=== PATIENT | female | born 1975 | race Native Hawaiian/Other Pacific Islander ===

== ENCOUNTER → 2017-07-02 | Day surgery (SDC) | payer OTHER ==
[~2017-07-02] MED LIST: Bupivacaine HCl 0.25% PF (10 ml) Inj ONE; HYDROmorphone 0.5 mg/0.5 ml ISec IVP PRN; Lactated Ringer's 1,000 ML IV ONE; Midazolam 2 MG/2 ML VIAL ONE; Neostigmine Methylsulfate 3mg/3ml Syringe IV ONE; Propofol 10 mg/ml Inj (20 ML) ONE; Rocuronium 10 mg/ml (5 ml) ONE; cefOXitin IV 1 gm in Dextrose 1 GM/50 ML BAG IVPB ONE
[2017-07-02 11:22] VITALS: TEMP 98
[2017-07-02 12:33] VITALS: BP 107/64; PULSE 80; RESP 18; O2SAT 98
--- NOTE | 2017-07-02 12:51 | PCM.SURG1 ---
Surgeon's Initial Post Op Note - Surgeon's Notes Surgeon: dr hernandez [employer] Coordinator: dr sotelo Type of Anesthesia: General LMA Pre-Operative Diagnosis: 41yr wih pelvic mass Operative Findings: ant abdominal mass Post-Operative Diagnosis: same/ant abdominal mass Operation Performed: diagnostc laroscopy/pelvic washing Specimen/Specimens Removed: pelvic washing Estimated Blood Loss: EBL {In ML}: 50 Post-Op Condition: Good Date of Surgery/Procedure: 07/02/17 Time of Surgery/Procedure: 10:00
== END | disposition home or self-care (01) ==
LOC: C.SDS 05:46
PROVIDERS: ATTEND Obstetrics & Gynecology
DX: R19.00 Intra-abdominal and pelvic swelling, mass and lump, unspecified site (principal)
CPT/HCPCS: 36415; 49320; 86850; 86900; 88104; 88305; J0694; J1100; J1170; J2001; J2250; J2405; J2704; J2710; J2765; J3010; J7120

== ENCOUNTER 2017-09-30 11:11 | Day surgery (SDC) | payer OTHER ==
[2017-09-30] MEDS ORDERED: Iohexol 240 (50 ml) ONE (13:50)
[2017-09-30] MEDS ORDERED: Lidocaine 2% Jelly (Uro-Jet) ONE (13:50)
[2017-09-30] MEDS ORDERED: cefTRIAXone IV 1 gm in Dextros 50 ML IVPB ONE (13:50)
[2017-09-30] MEDS ORDERED: Midazolam 2 MG/2 ML VIAL ONE (13:59)
[2017-09-30] MEDS ORDERED: Propofol 10 mg/ml Inj (20 ML) ONE (14:00)
[2017-09-30 14:44] VITALS: BMI 20.3
[2017-09-30] MEDS ORDERED: HYDROmorphone 0.5 mg/0.5 ml ISec IVP PRN (14:47)
[2017-09-30] MEDS ORDERED: Oxycodone/Acetaminophen 5/325 mg Tab PO PRN (14:48)
[2017-09-30 15:09] VITALS: O2SAT 100
--- NOTE | 2017-09-30 15:53 | RAD ---
PROCEDURE: HISTORY: As above COMPARISON: None TECHNIQUE: Total fluoroscopic time utilized during the procedure: 37.8 seconds ; 0.03081 mGy cm 2 FINDINGS: Submitted images from the current procedure: 12 Please refer to the physician's notes performing the procedure. IMPRESSION: Less than 1 hour fluoroscopic time utilized during performance of the procedure
--- NOTE | 2017-09-30 15:55 | RAD ---
HISTORY: BLADDER MASS COMPARISON: No prior. FINDINGS: BOWEL: Right stool retention. No bowel obstruction appreciated BONES: Five non rib-bearing lumbar vertebrae. T12 will be considered with very slight rudimentary ribs transitional elements. Bilateral sacroiliac sclerosis OTHER FINDINGS: Pelvic increased soft tissue density in this patient with clinical history of a bladder mass. Nonspecific 2 x 1 mm or smaller linear right hemipelvic calcification above the right acetabular roof etiology uncertain IMPRESSION: Pelvic soft tissue fullness -inferred distended bladder. Moderate right stool retention
[2017-09-30 16:27] VITALS: TEMP 97.4
[2017-09-30 17:10] VITALS: BP 156/71; PULSE 69; RESP 16
--- NOTE | 2017-10-05 08:59 | HP ---
UROLOGY NOTE REASON FOR ADMISSION: Workup of hematuria and possible bladder mass after insertion of stent. HISTORY OF PRESENT ILLNESS: This is a very pleasant lady. She came yesterday for the following. She has undergone possible hysterectomy and/or some kind of surgical procedure with Dr. Etienne and Dr. Valdivia and urology is consulted to deflate stent prior to that procedure and also to evaluate for any bladder mass. I reviewed the CT scan and it looks like , but previously we had seen the patient in the operating room and there was a question about the bladder mass during the laparoscopic , so now we are evaluating this. PAST MEDICAL AND SURGICAL HISTORY: As listed in the chart, otherwise unremarkable. SOCIAL HISTORY: She is . She is unremarkable social history. MEDICATIONS: See chart. ALLERGIES: SEE CHART. PHYSICAL EXAMINATION: GENERAL: A well-nourished female in no apparent distress. VITAL SIGNS: Within normal limits . ABDOMEN: Relatively soft. No rebound or guarding. No CVA tenderness. DIAGNOSES: Hematuria, possible mass and/or gynecologic mass. PLAN: As follows: The patient will undergo surgical resection maybe this week, and we are going to place stent now. We are also going to evaluate the bladder. 1. Antibiotic prophylaxis. 2. Cyst. 3. Cystogram. 4. Retrograde pyelogram. 5. Bilateral stent insertion. 6. Further plans will follow. Bert Rodriguez MD
--- NOTE | 2017-10-05 09:09 | OP ---
PROCEDURE DATE: 09/30/2017 PREOPERATIVE DIAGNOSES: Hematuria, possible bladder mass, and adnexal uterine mass. POSTOPERATIVE DIAGNOSES: Hematuria, possible bladder mass, adnexal uterine mass, and no evidence of bladder mass. PROCEDURES: Exam under anesthesia; cystoscopy, cystogram, bilateral retrograde pyelogram, and bilateral double-J stent insertion. COMPLICATIONS: There were no complications. SURGEON: Bert Rodriguez MD. BLOOD LOSS: Less than 10 mL. Examination under anesthesia, the patient had successful insertion of bilateral stents. INDICATIONS FOR THE PROCEDURE: The patient is a very pleasant lady, just 42 years old, who is going to undergo a hysterectomy or some kind of POULTRY KILLER procedure later this week with Dr. Etienne and Dr. Valdivia. In preparation to this, we are evaluating as also previously in the operating room where she was having a laparoscopic procedure and there was a question of a bladder mass. At that time, we elected to follow as an outpatient. We have seen her in the office. We had a chance to review CT scan. It does not necessarily look like, although during the procedure it looked like it was connected to the dome of the bladder. could be urachal remnants are being pulled like the way the laparoscope affected it, but subsequently had CT scan, it does not appear to have any extrinsic bladder masses. She is here today for further evaluation. We discussed . We also applied for stents in preparation for protection of the ureter. Further plans will follow. DESCRIPTION OF PROCEDURE: After obtaining informed consent, the patient was placed on the table. Routine monitor was placed. Time-out was called to confirm the patient and positioning. Rigid cystoscope via the urethra under direct vision, we identified left and right ureter. Bladder was inspected carefully. There was no bladder or intrinsic lesions. Retrograde pyelogram performed and double-J stent was inserted bilaterally. We confirmed our positioning under fluoroscopic imaging. The procedure continued. We did a cystogram at this point, and then bladder the emptied well. There were no obvious defects. Films were submitted to Radiology, but no obvious abnormalities. The patient tolerated the procedure without complications. Bert Rodriguez MD [facility] # [id number]
== END 2017-09-30 17:20 | disposition home or self-care (01) ==
LOC: C.SDS 11:11
PROVIDERS: ATTEND Urology
DX: N32.9 Bladder disorder, unspecified (principal); R31.29 Other microscopic hematuria
CPT/HCPCS: 51600; 52332; 74018; C1758; C1769; C2617; J0696; J1170; J1580

== ENCOUNTER 2017-10-02 11:53 | Day surgery (SDC) | payer OTHER ==
[2017-10-02 11:54] VITALS: BMI 23.3
--- NOTE | 2017-10-02 13:07 | C.PDOC ---
History Of Present Illness 42yo female, currently status post bilateral ureteral stent placement on 09/30/[address] Milly Rodriguez, presents to ED for evaluation of worsening pain since the stent placement. She denies any fever, chills, dysuria, hematuria. She offers no other medical complaints. Patient has a history of pelvic mass as well. Time Seen by Provider: 10/02/17 13:06 Chief Complaint (Nursing): Abdominal Pain History Per: Patient History/Exam Limitations: no limitations Onset/Duration Of Symptoms: Days Current Symptoms Are (Timing): Still Present Quality Of Discomfort: "Pain" Additional History Per: Patient Past Medical History Reviewed: Historical Data, Nursing Documentation, Vital Signs Vital Signs: Last Vital Signs Temp 98.3 F 10/02/17 13:34 Pulse 78 10/02/17 13:34 Resp 18 10/02/17 13:34 BP 105/75 10/02/17 13:34 Pulse Ox 99 10/02/17 13:58 - Medical History PMH: Denies: Chronic Kidney Disease Surgical History: Endoscopy Denies: Pacemaker Other Surgeries: bilateral ureteral stents Family History: States: No Known Family Hx - Social History Hx Alcohol Use: No Hx Substance Use: No Review Of Systems Except As Marked, All Systems Reviewed And Found Negative. Constitutional: Negative for: Fever, Chills Gastrointestinal: Positive for: Abdominal Pain Genitourinary: Negative for: Dysuria, Frequency, Hematuria Physical Exam - Physical Exam Appears: Non-toxic, Other (mild discomfort) Skin: Warm, Dry Head: Atraumatic, Normacephalic Eye(s): bilateral: Normal Inspection Oral Mucosa: Moist Neck: Normal ROM, Supple Chest: Symmetrical Cardiovascular: Rhythm Regular Respiratory: Normal Breath Sounds Gastrointestinal/Abdominal: Normal Exam, Soft, No Tenderness, No Guarding, No Rebound Back: Normal Inspection Extremity: Normal ROM, No Deformity Neurological/Psych: Oriented x3 Gait: Steady ED Course And Treatment O2 Sat by Pulse Oximetry: 99 (RA) Pulse Ox Interpretation: Normal Progress - Re-Evaluation Re-evaluation Note: 10/02/17 13:06 milly rodriguez Disposition Counseled Patient/Family Regarding: Diagnosis - Disposition Disposition: HOSPITALIZED Disposition Time: 13:07 Condition: STABLE - POA Present On Arrival: None - Clinical Impression Clinical Impression: Pain due to ureteral stent - Scribe Statement The provider has reviewed the documentation as recorded by the Scribe (Shanell Andres) Provider Attestation: All medical record entries made by the Jabieribmilly were at my direction and personally dictated by me. I have reviewed the chart and agree that the record accurately reflects my personal performance of the history, physical exam, medical decision making, and the department course for this patient. I have also personally directed, reviewed, and agree with the discharge instructions and disposition.
[2017-10-02] MEDS ORDERED: Propofol 10 mg/ml Inj (20 ML) ONE (13:37)
[2017-10-02] MEDS ORDERED: Midazolam 2 MG/2 ML VIAL ONE (13:37)
[2017-10-02] MEDS ORDERED: HYDROmorphone 0.5 mg/0.5 ml ISec IVP PRN (14:38)
[2017-10-02 15:40] VITALS: O2SAT 100
[2017-10-02 16:19] VITALS: BP 106/65; PULSE 66; RESP 18; TEMP 98
--- NOTE | 2017-10-03 02:14 | HP ---
REASON FOR ADMISSION: Removal of double-J stent. HISTORY OF PRESENT ILLNESS: Ms. Jorge Alcantar is a very pleasant lady. She is a 42 years old. On 09/30/2017, we put in bilateral stents in preparation for her to have her surgery with Dr. Etienne and Dr. Valdivia. Since then, she has had flank pain from her stents. She cannot urinate well. She is not sleeping, her is losing work. So, I discussed the options with them, at this point, they are asking me if I could remove it, and so she is here today for that. PAST MEDICAL AND SURGICAL HISTORY: No other changes. REVIEW OF SYSTEMS: No other changes. SOCIAL HISTORY: Essentially no changes. PHYSICAL EXAMINATION: GENERAL: A well-nourished female. She is just uncomfortable in appearance. VITAL SIGNS: Within normal limits. DIAGNOSES: 1. Stent discomfort. 2. Uterine mass. 3. No bladder mass as we found on Friday. PLAN: The plan will be as follows: Today, we are going to remove both stents, if stents were needed for the procedure, we will do them at the time of the procedure or close it until the time of the procedure. Further plan is to follow up, but for now, we are going to remove the stents. Risks and benefits were discussed with the patient at length. Bert Rodriguez MD
--- NOTE | 2017-10-03 07:23 | OP ---
PROCEDURE DATE: 10/02/2017 PREOPERATIVE DIAGNOSES: Stent pain, uterine mass, no bladder mass, and hematuria. POSTOPERATIVE DIAGNOSES: Stent pain, uterine mass, no bladder mass, and hematuria. PROCEDURE: Cystoscopy, and removal of a left double-J stent and a right double-J stent. BLOOD LOSS: Less than 10 mL. COMPLICATIONS: There were no complications. SURGEON: Dr. Bert Rodriguez. FINDINGS: Both stents were in good location. They were in the proper location, but they were removed easily. INDICATIONS FOR PROCEDURE: See history and physical for further details. A very pleasant lady who I placed stents in preparation for her surgery with Dr. Etienne and Dr. Valdivia, they have scheduled for surgery. Actually, I initially thought the surgery this week next week. We have placed the stents, we are hoping the patient would be okay, but she is having so much stent discomfort. She would rather go for another procedure. We have discussed the timings. She is actually now scheduled. She is scheduled for surgery upcoming. At that time, we will discuss the plans. But today, we removed the stents. DESCRIPTION OF PROCEDURE: After obtaining informed consent, the patient was placed on the table. Routine monitor was placed. Time-out was called to confirm the patient and positioning. We introduced the cystoscope via urethra. We identified the left and right ureteral stents. They were in good location. They looked to be in the bladder properly and did not look likely there is any stent migration in either direction. They were removed without difficulty. Bladder was emptied and cystoscope removed. The patient tolerated the procedure without complications. Bert Rodriguez MD
== END 2017-10-02 16:22 | disposition home or self-care (01) ==
LOC: C.ER 11:53 → C.SDS 13:07
PROVIDERS: ATTEND Urology
DX: Z46.6 Encounter for fitting and adjustment of urinary device (principal); R31.9 Hematuria, unspecified
CPT/HCPCS: 52310; J1580

== ENCOUNTER 2017-10-22 05:40 | Inpatient (IN) | payer OTHER ==
[2017-10-22] MEDS ORDERED: Bupivacaine 0.25%-Epinephrine 1:200,000 (30 ml) Inj IJ ONE (07:16)
[2017-10-22] MEDS ORDERED: ceFAZolin IV 1 gm in Dextrose 0 GM/0 ML BAG IVPB ONE (07:32)
[2017-10-22] MEDS ORDERED: Lidocaine/Epinephrine 1% 1:100000 10 ML IJ ONE ×2 (07:32→07:40)
[2017-10-22] MEDS ORDERED: ceFAZolin IV 1 gm in Dextrose 2 GM/100 ML BAG IVPB ONE (07:40)
[2017-10-22] MEDS ORDERED: Bupivacaine 0.25% Inj(30mL) IJ ONE (08:00)
[2017-10-22] MEDS ORDERED: Propofol 10 mg/ml Inj (20 ML) ONE (08:02)
[2017-10-22] MEDS ORDERED: Midazolam 2 MG/2 ML VIAL ONE ×2 (08:03→10:21)
[2017-10-22] MEDS ORDERED: Rocuronium 10 mg/ml (5 ml) ONE (08:54)
[2017-10-22] MEDS ORDERED: Neostigmine Methylsulfate 3mg/3ml Syringe IV ONE (08:54)
--- NOTE | 2017-10-22 10:08 | PCM.OP ---
Operative Report - Operative Report Date of Surgery/Procedure: 10/22/17 Time of Surgery/Procedure: 10:05 Surgeon: Jose Shore MD Team Truck Driver: Vivien VARNER Anesthesia/Sedation: Gen with Et tube Pre-Operative Diagnosis: symptomatic fibroid uterus. REctocele. Cystocele. Abnormal uterine bleeding. Chronic pain. Oelvic mass Post-Operative Diagnosis: symptomatic fibroid uterus. REctocele. Cystocele. Abnormal uterine bleeding. Chronic pain. Extensive intraabdominal intrapelvic adhesions. Uterine prolpase Indication for Surgery: worsening symptomatic fibroid uterus and prolpase uterus Operative Findings: Bulky enlarged fibroid uterus. Large glabular mass originating from the small interstine. Normal apprearing tubes and ovaries. Extensive intraabdominal intrapelvic adhesions. normal bladder and ureters anatomy as per cystoscopy at the end of the. case. Mass was released form anterior abdominal wall and bladder, hysterectomy completed and colposuspension completed. Frozesn section sent to pathology and initial read as per pathology consistent with benign fibroid disease seeded in the bowel . no mitotic figures noted. spindles noted. decision was made to proceed with resection of bowel mass by Dr Cee and possible bowel resection by Dr Cee if needed. Bowel portion of case will be dictated by Dr. Cee. Stage III rectocele enterocele and uterine prolapse Procedure/Operation Description: Total robotic hysterectomy Bilateral salpingctomy. Uterosacroligament suspenssion colpopexy. Extensive lysis of adhesions. Diagnostic cystoscopy. DESCRIPTION OF OPERATION: This is a 42 years old female with symptomatic prolapsed uterus, pelvic mass questionable bowel origin, abnormal uterine bleeding, urinary incontinence. The patient completed an extensive preoperative workup, which included an ultrasound, as well as a Pap smear, chemistry and hematology studies. The patient had a complete workup including seeing a classifications officer cc/cm as well as a general surgeon evaluating the mass. The patient has been normal recent colonoscopy. The patient underwent a couple of laparoscopies in the past and the diagnosis of extensive pelvic adhesive disease was made. I was asked to provide a gynecological surgical consultation on this patient. The patient reported these symptoms and problems as debilitating, and adversely affecting her quality of life. Following a period of failed conservative management, and patient decision was made to proceed with a more invasive approach to address the above noted problems. A decision was finally made to proceed with a total robotic assisted hysterectomy, bilateral salpingectomy, and vaginal vault suspension. A detailed description of this robotic procedure was given to the patient, all indications, risks, benefits and alternative treatments were reviewed, and printed material was also given to the patient regarding robotic surgery. The patient elected to proceed with the proposed procedure fully understanding all the risks and benefits associated with this proposed robotic procedure. Gen. surgery by Dr. Gu was also present during this case in case the mass originated from the intestine and would probably require bowel resection. After proper consent was obtained from the patient was taken to the operating room, proper patient identification was completed. She was placed in dorsal lithotomy position; general anesthesia was induced without difficulty. Her legs were placed in adjustable Amarjit stirrups. Careful attention was placed to avoid hyper-flexion or hyper-rotation of the lower extremities at the hip and the knee joints. She was prepped and draped appropriately for robotic assisted hysterectomy and colposuspension. Bowens catheter was inserted under sterile conditions. A weighted speculum was placed in the vagina, anterior lip of cervix was grasped with a tenaculum, the cervix was mildly dilated and a V- care uterine manipulator was inserted through the cervix and secured. The weighted speculum and tenaculum were removed from the patient's vagina and attention was turned to the patient's abdomen. Local anesthetic solutions of 0.25% Marcaine with epinephrine were utilized to infiltrate the skin prior to all abdominal skin incisions. A total of 15 mL of 0.25% Marcaine was utilized throughout the procedure. While tenting the abdominal wall up, a Veress needle was inserted at a 45 degree angle. With CO2 insufflation, there was a drop in intraperitoneal pressure confirming correct placement. Insufflation was carried out to approximately 3 liters. A blunt robotic trocar and sleeve was introduced through the camera port in the midline, approximately 3 cm above the umbilicus. Then, using a 30-degree lens robotic scope, initial survey of the patient's abdomen revealed severe pelvic adhesive disease with tight adhesions originating from the globular mass approximately 8-9 cm in its largest diameter and tightly adherent to the bladder and to the anterior abdominal wall. Tight adhesions were also noted from the anterior uterine wall to multiple loops of bowel as well as to the anterior abdominal wall. The uterus appeared fibrotic and possible adenomyosis and it was tightly adherent to the bladder to anterior abdominal wall. Both ovaries appeared normal, fallopian tubes were tightly adherent as well. Under direct visualization, 3 additional robotic ports were utilized for this procedure. The first one, approximately 5 cm superior to the superior iliac crest on the RIGHT, a second port was approximately 5 cm superior to the superior iliac crest on the LEFT, and a third one was approximately 8 cm RIGHT lateral of the camera port in the midline. All robotic ports were approximately 8 mm in length. An virtual office assistant port was inserted approximately 8 cm LEFT lateral of the camera port, and the versastep trocar and sleeve were introduced in the recommended fashion. A Veress and sheath were first introduced through a 1 cm incision, the Veress was removed and a trocar was introduced through the sheath and secured. Again, excellent visualization was noted confirming intraperitoneal placement. The placement of the trocars was all accomplished under careful and meticulous placement under direct visualization. Following the placement of all trocars, the da Jennifer robotic system was docked in a parallel side docking method without difficulty after the patient was placed in moderate Trendelenburg position and small bowel had been swept away out of the pelvis. The ureter was positively identified. The following instruments were utilized for this procedure: the bipolar cautery device, a monopolar amaris and finally a ProGrasp. Enterolysis as well as lysis of adhesions was meticulously completed in order to access the pelvic viscera. Extensive anterolysis was completed utilizing sharp and blunt dissection freeing the anterior abdominal wall for multiple loops of bowel as well as adhesions. Careful attention was placed to separate the mass from the bladder and the anterior abdominal wall. The mass was left connected to the small bowel origin for later resection by the general surgeon. Once the pelvic cavity was clear of these intense adhesions and free of the intestinal mass which appeared like a fibroid attention was then turned to the hysterectomy portion of the procedure. At this time, a biopsy of this mass was obtained and sent to pathology for frozen section. Pelvic washing was completed. Pathology frozen reports several minutes later was consistent with benign fibroid-like mass, no mitotic features, no evidence of malignancy. The pathologist reported this as benign mass. Decision was made to proceed with a hysterectomy and colposuspension, closure of the vaginal cuff. Following the conclusion of this hysterectomy, Gen. surgery will proceed with excision of the intestinal mass with possible bowel resection and primary anastomosis. Prior to the start of the hysterectomy, both ureters were visualized along the full course, peristalsis bilaterally. On the patient's right side, the utero-ovarian and the round ligaments were identified cauterized and transected, the broad ligament was divided all the way down to the utero cervical junction bladder flap was then created by transecting the visceroperitoneum over the bladder reflection. In a similar fashion, the left round ligament, utero-ovarian ligament and broad ligament were cauterized sealed and transected, taken down to the level of the cervical uterine junction. Uterine vessels on both sides were sealed and transected. The Uterosacral ligaments were sealed and transected. The monopolar amaris and PK were utilized to complete the colpotomy incision around the care vaginal ring. Excellent hemostasis was noted. The uterus, cervix, and fallopian tubes were delivered transvaginally through the colpotomy incision and sent to pathology for permanent analysis. The colpotomy incision was closed with 2-0 v LOC in a continuous fashion with excellent hemostasis. The vaginal vault suspension was achieved by suspending the vaginal cuff to the base of the uterosacral ligaments bilaterally. For uterosacral ligament suspension portion of the procedure, the ureters were once again identified to avoid possible compromise or kinking while suspending the vaginal vault. A 2-0 permanent suture material ([place]) was utilized to suspend the uterosacral ligaments from the base to the vaginal vault cuff incision including both anterior and posterior aspect of the colpotomy incision. Utilizing a 3-0 Monocryl suture, the peritoneum over the colpotomy incision and uterosacral ligaments was re-approximated in a continuous fashion. The pelvis and abdomen were irrigated copiously and cleared of all clots and debris. FloSeal as well as Interceed was applied over the incision sites. Excellent hemostasis was once again noted. All robotic and laparoscopic instruments removed under direct visualization. The robotic arms were undocked , and a da Jennifer robotic system was wheeled away from the patient's bedside. At the conclusion of this procedure, a diagnostic cystoscopy was completed. The Bowens catheter was removed; the bladder was distended with approximately 350 cc of normal saline. A 17 [place] 30 cystoscope was introduced through the urethra and a survey of the bladder anatomy was completed. The trigone, and the dome of the bladder appeared normal, both ureteral orifices appeared normal and were efluxing urine freely. The urethra appeared normal. A Bowens catheter was reinserted. Prior to incision the patient received antibiotics, prior to closure sponge lap and needle counts were correct x2. At this time, general surgery by dr cee took over the case in order to complete bowel resection along with this small intestinal originating mass. Estimated Blood Loss: 25 Blood Replaced: none Sponge/Instrument Count: count correct times 2 Drains: none Complications: none Specimen: uterus cervix and tubes, biopsy of mass sent to pathology for frozen section. Discharge & Condition: as per criteria
[2017-10-22] MEDS: HYDROmorphone 0.5 mg/0.5 ml ISec IVP PRN ×3 (11:44→12:22)
[2017-10-22] MEDS ORDERED: HYDROmorphone 1 mg/ml ISec IVP PRN (12:35)
[2017-10-22] MEDS ORDERED: Oxycodone/Acetaminophen 5/325 mg Tab PO PRN (12:56)
[2017-10-22] MEDS: Lactated Ringer's 1,000 ML IV SCH (13:56)
[2017-10-22] MEDS ORDERED: DiphenhydrAMINE 50 mg/ml Inj IVP STA (14:23)
[2017-10-22] MEDS ORDERED: DiphenhydrAMINE 50 mg/ml Inj ONE ×2 (14:31→14:32)
[2017-10-22 15:50] LABS: BASO % 0.2 % (0.0-2.0); LYMPH # 1.2 K/uL (1.0-4.3); LYMPH % 11.3 % (20.0-40.0); MEAN CELL VOLUME 80.8 fL (81.0-99.0); MEAN CORPUSCULAR HEMOGLOBIN 27.8 pg (27.0-31.0); MEAN CORPUSCULAR HGB CONC 34.4 g/dL (33.0-37.0); MEAN PLATELET VOLUME 9.3 fL (7.2-11.7); MONO # 0.6 K/uL (0.0-0.8); MONO % 5.6 % (0.0-10.0); NEUT # 8.6 K/uL (1.8-7.0); NEUT % 82.9 % (50.0-75.0); NRBC % 0.1 % (0.0-2.0); RBC 5.41 Mil/uL (3.80-5.20); RED CELL DISTRIBUTION WIDTH 14.9 % (11.5-14.5)
[2017-10-22 16:03] LABS: WHITE BLOOD COUNT 10.4 K/uL (4.8-10.8)
[2017-10-22 16:13] LABS: ALB/GLOB RATIO 1.1 (1.0-2.1); ALBUMIN 2.8 g/dL (3.5-5.0); ALT/SGPT 33 U/L (9-52); AST/SGOT 24 U/L (14-36); BLOOD UREA NITROGEN 5 mg/dL (7-17); CALCIUM 7.7 mg/dl (8.6-10.4); GFR AFRICAN-AMERICAN > 60; GFR NON-AFRICAN AMERICAN > 60
[2017-10-22] MEDS: MethylPREDNISolone 40 mg Vial IV SCH ×2 (16:38→22:16)
[2017-10-23] MEDS: MethylPREDNISolone 40 mg Vial IV SCH ×3 (04:15→16:10)
[2017-10-23 07:08] LABS: BASO % 0.4 % (0.0-2.0); LYMPH # 0.9 K/uL (1.0-4.3); MEAN CELL VOLUME 79.8 fL (81.0-99.0); MEAN CORPUSCULAR HEMOGLOBIN 27.8 pg (27.0-31.0); MEAN CORPUSCULAR HGB CONC 34.8 g/dL (33.0-37.0); MEAN PLATELET VOLUME 9.1 fL (7.2-11.7); MONO # 0.4 K/uL (0.0-0.8); MONO % 4.7 % (0.0-10.0); NEUT # 7.7 K/uL (1.8-7.0); NEUT % 84.9 % (50.0-75.0); NRBC % 0.1 % (0.0-2.0); RBC 4.42 Mil/uL (3.80-5.20); RED CELL DISTRIBUTION WIDTH 14.7 % (11.5-14.5); WHITE BLOOD COUNT 9.1 K/uL (4.8-10.8)
[2017-10-23 07:18] LABS: HEMOGLOBIN 12.3 g/dL (11.0-16.0)
[2017-10-23 07:36] LABS: ALB/GLOB RATIO 1.1 (1.0-2.1); ALBUMIN 2.6 g/dL (3.5-5.0); ALT/SGPT 25 U/L (9-52); AST/SGOT 26 U/L (14-36); BLOOD UREA NITROGEN 9 mg/dL (7-17); CALCIUM 7.8 mg/dl (8.6-10.4); GFR AFRICAN-AMERICAN > 60; GFR NON-AFRICAN AMERICAN > 60
[2017-10-23] MEDS: Lactated Ringer's 1,000 ML IV SCH (13:04)
--- NOTE | 2017-10-23 16:37 | CP.PCM.PN ---
<Espinoza Lee - Last Filed: 10/23/17 16:34> Subjective - Date & Time of Evaluation Date of Evaluation: 10/23/17 Time of Evaluation: 16:34 - Subjective Subjective: General Surgery Progress Note for Dr. Valdivia This 42F was seen and examined this Am at bedside no acute events overnight. Patient complaining of pain this AM and requesting to stay in the hospital. Denies chest pain, sob, nausea, vomiting or diarrhea. Objective - Vital Signs/Intake and Output Vital Signs (last 24 hours): Temp Pulse Resp BP Pulse Ox 98.2 F 99 H 20 120/85 98 10/23/17 16:17 10/23/17 08:01 10/23/17 08:01 10/23/17 08:01 10/23/17 08:01 Intake and Output: 10/23/17 10/23/17 06:59 18:59 Intake Total 1200 480 Output Total 200 Balance 1200 280 - Medications Medications: Current Medications Acetaminophen (Tylenol 325mg Tab) 975 mg PO Q6 PRN PRN Reason: Fever >100.4 F Last Admin: 10/23/17 16:17 Dose: 975 mg Hydromorphone HCl (Dilaudid) 1 mg IVP Q4H PRN PRN Reason: Pain, severe (8-10) Lactated Ringer's (Lactated Ringer's) 1,000 mls @ 100 mls/hr IV .Q10H [facility] Last Admin: 10/23/17 13:04 Dose: 100 mls/hr Cefazolin Sodium 500 mg/ (Sodium Chloride) 100 mls @ 200 mls/hr IVPB Q8H [facility] PRN Reason: Protocol Last Admin: 10/22/17 16:20 Dose: Not Given Ketorolac Tromethamine (Toradol) 15 mg IVP Q6 PRN PRN Reason: Pain, severe (8-10) Last Admin: 10/22/17 21:55 Dose: 15 mg Methylprednisolone (Solu-Medrol) 40 mg IV Q6H [facility] Last Admin: 10/23/17 16:10 Dose: 40 mg Ondansetron HCl (Zofran Inj) 4 mg IVP Q4 PRN PRN Reason: Nausea/Vomiting Oxycodone/Acetaminophen (Percocet 5/325 Mg Tab) 2 tab PO Q4H PRN PRN Reason: Pain, moderate (4-7) Stop: 10/25/17 12:57 - Labs Labs: 10/23/17 06:53 10/23/17 06:53 - Constitutional Appears: Non-toxic, No Acute Distress - Head Exam Head Exam: ATRAUMATIC, NORMOCEPHALIC - Eye Exam Eye Exam: EOMI - Respiratory Exam Respiratory Exam: NORMAL BREATHING PATTERN - Cardiovascular Exam Cardiovascular Exam: +S1, +S2 - GI/Abdominal Exam GI & Abdominal Exam: Soft. absent: Distended, Firm, Guarding, Rigid, Tenderness Additional comments: Dressings clean dry and intact - Neurological Exam Neurological Exam: Alert, Awake - Psychiatric Exam Psychiatric exam: Normal Affect, Normal Mood - Skin Skin Exam: Dry, Intact Assessment and Plan - Assessment and Plan (Free Text) Assessment: 42F s/p hysterectomy and RAMON CLD DVT PPX ABX OOB Continue ABX Continue pain control further recs per Dr. Shea Lee PGY2 <Jonny Valdivia B - Last Filed: 10/26/17 20:15> Objective - Vital Signs/Intake and Output Vital Signs (last 24 hours): Temp Pulse Resp BP Pulse Ox 98.3 F 72 18 121/80 98 10/26/17 16:00 10/26/17 16:00 10/26/17 16:00 10/26/17 16:00 10/26/17 16:00 Intake and Output: 10/26/17 10/27/17 18:59 06:59 Intake Total 1200 100 Output Total 1280 Balance -80 100 - Medications Medications: Current Medications Acetaminophen (Tylenol 325mg Tab) 975 mg PO Q6 PRN PRN Reason: Fever >100.4 F Last Admin: 10/23/17 16:17 Dose: 975 mg Hydromorphone HCl (Dilaudid) 1 mg IVP Q4H PRN PRN Reason: Pain, severe (8-10) Dextrose/Sodium Chloride (Dextrose 5%/0.45% Ns 1000 Ml) 1,000 mls @ 100 mls/hr IV .Q10H [facility] Last Admin: 10/26/17 15:18 Dose: Not Given Morphine Sulfate (Morphine) 4 mg IVP Q4H PRN PRN Reason: Pain, moderate (4-7) Last Admin: 10/26/17 15:20 Dose: 4 mg Ondansetron HCl (Zofran Inj) 4 mg IVP Q4 PRN PRN Reason: Nausea/Vomiting Pantoprazole Sodium (Protonix Inj) 40 mg IVP DAILY [facility] Last Admin: 10/26/17 09:22 Dose: 40 mg - Labs Labs: 10/26/17 06:51 10/25/17 03:06 PT 12.3 SECONDS (9.7-12.2) H 10/25/17 03:06 INR 1.1 10/25/17 03:06 APTT 26 SECONDS (21-34) 10/25/17 03:06 Attending/Attestation - Attestation I have personally seen and examined this patient.: Yes I have fully participated in the care of the patient.: Yes I have reviewed all pertinent clinical information, including history, physical exam and plan: Yes Notes (Text): Pt was seen and examined at bedside Agree with above note and assessment Pt is improving clinically DC stinson DVT prophylaxis start liquid diet C/W IV antibiotics c.w current mx Plan d.w pt in detail Risk and benefit explained in detail
[2017-10-23] MEDS: Piperacillin/Tazobact 3.375 GM in Sodium Chloride 100 ML IVPB SCH (22:21)
[2017-10-24] MEDS: Piperacillin/Tazobact 3.375 GM in Sodium Chloride 100 ML IVPB SCH ×4 (03:01→19:41)
--- NOTE | 2017-10-24 05:23 | OP ---
PROCEDURE DATE: 10/22/2017 PREOPERATIVE DIAGNOSES: 1. Large pelvic mass. 2. Uterine fibroid. 3. Lower abdominal pain. POSTOPERATIVE DIAGNOSES: 1. Large uterine fibroid. 2. Small bowel fungating mass, arising from mid ileum. PROCEDURE DONE: Small bowel resection and primary anastomosis. SURGEON: Jonny Valdivia MD [employer]: YURIDIA Stahl ANESTHESIA: General endotracheal tube anesthesia. ESTIMATED BLOOD LOSS: Around 10 mL for this part of the procedure. COMPLICATIONS: None. PATHOLOGY: The small bowel with attached fungating pedunculated mass was sent for the pathology. INTRAOPERATIVE FINDINGS: The patient had a large uterine fibroid as well as fungating small bowel mass that was attached to the uterus as well as the omentum. The patient also had uterine prolapse. DESCRIPTION OF PROCEDURE: On intraoperative steps, this is a 42-year-old female who was diagnosed with a large pelvic mass with possible uterine fibroid and peritoneal adhesion. The patient was initially consented for robotic enterolysis as well as possible bowel resection. The patient also was consented for robotic myomectomy and ALPA by Dr. Shore for the uterine fibroid. The patient was brought to the OR, placed supine on the operating table. After induction of the anesthesia, the initial part of the procedure was done by Dr. Shore. After completion of the robotic hysterectomy and this part of the dictation will be done by Dr. Shore, the patient found to have a large fungating mass originating from the mid ileum that was attached to the uterine fibroid. Now, a small Pfannenstiel incision was made to deliver the small bowel as well as the fungating mass. Small bowel resection was done, and [id number] anastomosis was done. The anastomosis was viable without any tension. There was normal blood supply and after that, small bowel was placed back into the peritoneal cavity. The Pfannenstiel incision was closed in 2 layers, the peritoneum and muscles with 0 Vicryl interrupted suture and the fascia with 0 PDS continuous suture and subcu with a 2-0 Vicryl and skin with a 4-0 Monocryl. All the port sites were also closed with 2-0 Vicryl and 4-0 Monocryl, and dry sterile dressing was applied. The patient tolerated the procedure well. The patient was extubated in OR, sent to the postanesthesia care unit in stable condition. Jonny Valdivia MD
[2017-10-24 08:32] LABS: BASO % 0.3 % (0.0-2.0); EOS # 0.3 K/uL (0.0-0.7); EOS % 2.2 % (0.0-4.0); LYMPH # 1.1 K/uL (1.0-4.3); LYMPH % 8.6 % (20.0-40.0); MEAN CELL VOLUME 79.9 fL (81.0-99.0); MONO # 0.6 K/uL (0.0-0.8); MONO % 4.7 % (0.0-10.0); NEUT # 10.6 K/uL (1.8-7.0); NEUT % 84.2 % (50.0-75.0); PLATELET COUNT 232 K/uL (130-400); RBC 3.07 Mil/uL (3.80-5.20); RED CELL DISTRIBUTION WIDTH 14.8 % (11.5-14.5); WHITE BLOOD COUNT 12.6 K/uL (4.8-10.8)
[2017-10-24 08:39] LABS: HEMOGLOBIN 8.6 g/dL (11.0-16.0)
[2017-10-24 08:49] LABS: ALB/GLOB RATIO 1.3 (1.0-2.1); ALBUMIN 2.9 g/dL (3.5-5.0); ALT/SGPT 29 U/L (9-52); AST/SGOT 20 U/L (14-36); BLOOD UREA NITROGEN 10 mg/dL (7-17); CALCIUM 8.1 mg/dl (8.6-10.4); GFR AFRICAN-AMERICAN > 60; GFR NON-AFRICAN AMERICAN > 60
[2017-10-24 10:08] LABS: LYMPHOCYTE 4 % (20-40); MONOCYTE 4 % (0-10); NEUTROPHIL 92 % (50-75); TOTAL CELLS COUNTED 100
[2017-10-24 10:09] LABS: HYPOCHROMIC SLIGHT; MICROCYTOSIS SLIGHT; PLATELET ESTIMATE NORMAL (NORMAL); POLYCHROMIC SLIGHT
--- NOTE | 2017-10-24 10:15 | CP.PCM.PN ---
<Espinoza Lee - Last Filed: 10/24/17 10:12> Subjective - Date & Time of Evaluation Date of Evaluation: 10/24/17 Time of Evaluation: 10:12 - Subjective Subjective: General Surgery Progress Note for Dr. Valdivia This 42F was seen and examined this AM. She reports that she is passing flatus and moving bowels however she reports blood streaked stool. She denies dizziness , chest pain, sob, nausea, vomiting or diarrhea. Objective - Vital Signs/Intake and Output Vital Signs (last 24 hours): Temp Pulse Resp BP Pulse Ox 97.6 F 84 18 109/71 97 10/23/17 21:45 10/23/17 21:45 10/23/17 21:45 10/23/17 21:45 10/23/17 21:45 - Medications Medications: Current Medications Acetaminophen (Tylenol 325mg Tab) 975 mg PO Q6 PRN PRN Reason: Fever >100.4 F Last Admin: 10/23/17 16:17 Dose: 975 mg Heparin Sodium (Porcine) (Heparin) 5,000 units SC Q8 [facility] Last Admin: 10/24/17 06:04 Dose: 5,000 units Hydromorphone HCl (Dilaudid) 1 mg IVP Q4H PRN PRN Reason: Pain, severe (8-10) Lactated Ringer's (Lactated Ringer's) 1,000 mls @ 100 mls/hr IV .Q10H [facility] Last Admin: 10/23/17 13:04 Dose: 100 mls/hr Piperacillin Sod/Tazobactam (Sod 3.375 gm/ Sodium Chloride) 100 mls @ 200 mls/ hr IVPB Q6H [facility] PRN Reason: Protocol Last Admin: 10/24/17 08:59 Dose: 200 mls/hr Ketorolac Tromethamine (Toradol) 15 mg IVP Q6 PRN PRN Reason: Pain, severe (8-10) Last Admin: 10/22/17 21:55 Dose: 15 mg Ondansetron HCl (Zofran Inj) 4 mg IVP Q4 PRN PRN Reason: Nausea/Vomiting Oxycodone/Acetaminophen (Percocet 5/325 Mg Tab) 2 tab PO Q4H PRN PRN Reason: Pain, moderate (4-7) Stop: 10/25/17 12:57 - Labs Labs: 10/24/17 08:22 10/24/17 08:22 - Constitutional Appears: Non-toxic, No Acute Distress - Head Exam Head Exam: ATRAUMATIC, NORMOCEPHALIC - Eye Exam Eye Exam: EOMI - Respiratory Exam Respiratory Exam: NORMAL BREATHING PATTERN - Cardiovascular Exam Cardiovascular Exam: +S1, +S2 - GI/Abdominal Exam GI & Abdominal Exam: Soft. absent: Distended, Firm, Guarding, Rigid, Tenderness Additional comments: Dressings clean dry and intact - Neurological Exam Neurological Exam: Alert, Awake - Psychiatric Exam Psychiatric exam: Normal Affect, Normal Mood - Skin Skin Exam: Dry, Intact - Rectal Exam Additional comments: melena noted on [facility] Assessment and Plan - Assessment and Plan (Free Text) Assessment: 42F s/p hysterectomy and RAMON, small bowel resection and anastamosis Hgb decreasong 15 -->12.3 -->8.6 Plan: Hold Heparin Type and cross Transfuse 2 prbc, 2ffp NPO Follow CBC further recs per Dr. Shea Lee PGY2 <Jonny Valdivia - Last Filed: 10/26/17 20:23> Objective - Vital Signs/Intake and Output Vital Signs (last 24 hours): Temp Pulse Resp BP Pulse Ox 98.3 F 72 18 121/80 98 10/26/17 16:00 10/26/17 16:00 10/26/17 16:00 10/26/17 16:00 10/26/17 16:00 Intake and Output: 10/26/17 10/27/17 18:59 06:59 Intake Total 1200 100 Output Total 1280 Balance -80 100 - Medications Medications: Current Medications Acetaminophen (Tylenol 325mg Tab) 975 mg PO Q6 PRN PRN Reason: Fever >100.4 F Last Admin: 10/23/17 16:17 Dose: 975 mg Hydromorphone HCl (Dilaudid) 1 mg IVP Q4H PRN PRN Reason: Pain, severe (8-10) Dextrose/Sodium Chloride (Dextrose 5%/0.45% Ns 1000 Ml) 1,000 mls @ 100 mls/hr IV .Q10H [facility] Last Admin: 10/26/17 15:18 Dose: Not Given Morphine Sulfate (Morphine) 4 mg IVP Q4H PRN PRN Reason: Pain, moderate (4-7) Last Admin: 10/26/17 15:20 Dose: 4 mg Ondansetron HCl (Zofran Inj) 4 mg IVP Q4 PRN PRN Reason: Nausea/Vomiting Pantoprazole Sodium (Protonix Inj) 40 mg IVP DAILY [facility] Last Admin: 10/26/17 09:22 Dose: 40 mg - Labs Labs: 10/26/17 06:51 10/25/17 03:06 PT 12.3 SECONDS (9.7-12.2) H 10/25/17 03:06 INR 1.1 10/25/17 03:06 APTT 26 SECONDS (21-34) 10/25/17 03:06 Attending/Attestation - Attestation I have personally seen and examined this patient.: Yes I have fully participated in the care of the patient.: Yes I have reviewed all pertinent clinical information, including history, physical exam and plan: Yes Notes (Text): Pt was seen and examined at bedside Agree with above note and assessment Pt with Acute blood loss anemia Repeat Hb after 1 PRBC is 6.5 Ass: Possible active internal bleeding most likely heparin induced. Plan : OR for Lap Exploration possible bowel resection Consent NPO, IVF 2 PRBC, 2 FFP and cryoprecipitate c.w current mx Plan d.w pt in detail Risk and benefit explained in detail
[2017-10-24 20:53] LABS: BASO % 0.2 % (0.0-2.0); EOS # 0.6 K/uL (0.0-0.7); EOS % 9.6 % (0.0-4.0); LYMPH # 1.1 K/uL (1.0-4.3); MEAN CELL VOLUME 80.9 fL (81.0-99.0); MEAN CORPUSCULAR HEMOGLOBIN 27.2 pg (27.0-31.0); MEAN CORPUSCULAR HGB CONC 33.6 g/dL (33.0-37.0); MEAN PLATELET VOLUME 8.2 fL (7.2-11.7); MONO # 0.3 K/uL (0.0-0.8); MONO % 4.3 % (0.0-10.0); NEUT # 4.1 K/uL (1.8-7.0); NEUT % 67.9 % (50.0-75.0); RBC 2.4 Mil/uL (3.80-5.20); RED CELL DISTRIBUTION WIDTH 14.7 % (11.5-14.5)
[2017-10-24 21:01] LABS: HEMOGLOBIN 6.5 g/dL (11.0-16.0)
[2017-10-24] MEDS ORDERED: Iodixanol 320 MG/ML 100 ML BOTTLE IV ONE (21:38)
[2017-10-24 22:15] LABS: INR 1.2; PROTHROMBIN TIME 12.6 SECONDS (9.7-12.2)
[2017-10-24] MEDS ORDERED: Propofol 10 mg/ml Inj (20 ML) ONE (22:34)
[2017-10-24] MEDS ORDERED: Sodium Chloride 0.9% 20 ML IV ONE (22:49)
[2017-10-24] MEDS ORDERED: Lidocaine/Epinephrine 1% 1:100000 10 ML IJ ONE (22:49)
[2017-10-24] MEDS ORDERED: Bupivacaine HCl 0.5% PF (30 ml) Inj ONE (22:49)
[2017-10-25] MEDS ORDERED: Rocuronium 10 mg/ml (5 ml) ONE (00:04)
[2017-10-25] MEDS ORDERED: Neostigmine Methylsulfate 3mg/3ml Syringe IV ONE (00:57)
[2017-10-25] MEDS: Lactated Ringer's 1,000 ML IV SCH (01:00)
--- NOTE | 2017-10-25 01:33 | PCM.SURG1 ---
Surgeon's Initial Post Op Note - Surgeon's Notes Surgeon: Dr. Valdivia Personalized Living Assistant: Dr. Lee PGY2 Type of Anesthesia: General Endo Pre-Operative Diagnosis: Acute Bloodloss Anemia Operative Findings: See operative dictation Post-Operative Diagnosis: Acute blood loss anemia Operation Performed: Exploratory Laparoscopy with small bowel anastamosis resection and reanastamosis Specimen/Specimens Removed: bowel anastamosis Estimated Blood Loss: EBL {In ML}: 600 Blood Products Given: PRBC, FFP Drains Used: Arnaud Post-Op Condition: Good Date of Surgery/Procedure: 10/25/17 Time of Surgery/Procedure: 01:33
[2017-10-25] MEDS ORDERED: Dextrose 5%/Lactated Ringer's 1,000 ML IV SCH (01:45)
[2017-10-25] MEDS ORDERED: Lactated Ringer's 1,000 ML IV SCH (02:00)
[2017-10-25] MEDS: Piperacillin/Tazobact 3.375 GM in Sodium Chloride 100 ML IVPB SCH ×4 (03:05→20:00)
[2017-10-25] MEDS: Morphine 4 MG/ML VIAL IVP PRN ×4 (03:07→23:54)
[2017-10-25 03:18] LABS: INR 1.1; PROTHROMBIN TIME 12.3 SECONDS (9.7-12.2)
[2017-10-25 03:19] LABS: BASO % 0.1 % (0.0-2.0); EOS # 0.8 K/uL (0.0-0.7); HEMOGLOBIN 9.7 g/dL (11.0-16.0); LYMPH # 0.9 K/uL (1.0-4.3); LYMPH % 8.9 % (20.0-40.0); MEAN CORPUSCULAR HEMOGLOBIN 28.2 pg (27.0-31.0); MEAN CORPUSCULAR HGB CONC 34.4 g/dL (33.0-37.0); MEAN PLATELET VOLUME 8.8 fL (7.2-11.7); MONO # 0.3 K/uL (0.0-0.8); MONO % 3.1 % (0.0-10.0); NEUT # 8.3 K/uL (1.8-7.0); NEUT % 79.9 % (50.0-75.0); PLATELET COUNT 184 K/uL (130-400); RBC 3.42 Mil/uL (3.80-5.20); RED CELL DISTRIBUTION WIDTH 14.5 % (11.5-14.5); WHITE BLOOD COUNT 10.5 K/uL (4.8-10.8)
[2017-10-25 03:25] LABS: ALB/GLOB RATIO 1.1 (1.0-2.1); ALBUMIN 3.1 g/dL (3.5-5.0); ALT/SGPT 34 U/L (9-52); AST/SGOT 20 U/L (14-36); BLOOD UREA NITROGEN 9 mg/dL (7-17); CALCIUM 7.5 mg/dl (8.6-10.4); GFR AFRICAN-AMERICAN > 60; GFR NON-AFRICAN AMERICAN > 60
[2017-10-25 03:36] LABS: B-TYPE NATRIURETIC PEPTIDE 1210 pg/mL (0-450); CK-MB 0.31 ng/mL (0.0-3.38)
[2017-10-25 04:22] LABS: BASOPHIL 1 % (0-2); EOSINOPHIL 8 % (0-4); LYMPHOCYTE 9 % (20-40); MONOCYTE 3 % (0-10); NEUTROPHIL 79 % (50-75); PLATELET ESTIMATE NORMAL (NORMAL); ROULEAUX FORMATION SLIGHT; TOTAL CELLS COUNTED 100
[2017-10-25] MEDS ORDERED: Magnesium Sulfate 1 gm in D5W 1 GM/100 ML BAG IVPB ONE ×2 (06:08→08:15)
--- NOTE | 2017-10-25 08:29 | RAD ---
HISTORY: Postoperative assessment COMPARISON: No comparison made with prior study 10/06/2017. FINDINGS: LUNGS: Poor inspiration with low lung volumes crowded bronchovascular markings and mild bibasilar atelectasis. PLEURA: No significant pleural effusion identified, no pneumothorax apparent. CARDIOVASCULAR: Normal. OSSEOUS STRUCTURES: No significant abnormalities. VISUALIZED UPPER ABDOMEN: Normal. OTHER FINDINGS: None. IMPRESSION: Poor inspiration with low lung volumes crowded bronchovascular markings and mild bibasilar atelectasis.
[2017-10-25 09:32] LABS: BASO % 0.1 % (0.0-2.0); EOS # 0.8 K/uL (0.0-0.7); EOS % 10.2 % (0.0-4.0); HEMOGLOBIN 10.1 g/dL (11.0-16.0); LYMPH # 0.9 K/uL (1.0-4.3); LYMPH % 11.1 % (20.0-40.0); MEAN CELL VOLUME 81.2 fL (81.0-99.0); MEAN CORPUSCULAR HEMOGLOBIN 28.2 pg (27.0-31.0); MEAN CORPUSCULAR HGB CONC 34.7 g/dL (33.0-37.0); MEAN PLATELET VOLUME 8.5 fL (7.2-11.7); MONO # 0.3 K/uL (0.0-0.8); MONO % 3.6 % (0.0-10.0); NEUT # 5.8 K/uL (1.8-7.0); RBC 3.57 Mil/uL (3.80-5.20); RED CELL DISTRIBUTION WIDTH 14.7 % (11.5-14.5); WHITE BLOOD COUNT 7.8 K/uL (4.8-10.8)
[2017-10-25] MEDS: Dextrose 5%/0.45% NS 1,000 ML IV SCH ×3 (09:59→23:58)
[2017-10-25] MEDS ORDERED: Morphine 4 MG/ML VIAL IV ONE (12:15)
[2017-10-25 15:07] LABS: BASO % 0.3 % (0.0-2.0); EOS # 0.8 K/uL (0.0-0.7); HEMOGLOBIN 10.5 g/dL (11.0-16.0); LYMPH # 0.8 K/uL (1.0-4.3); LYMPH % 10.1 % (20.0-40.0); MEAN CELL VOLUME 81.9 fL (81.0-99.0); MEAN CORPUSCULAR HEMOGLOBIN 28.5 pg (27.0-31.0); MEAN CORPUSCULAR HGB CONC 34.8 g/dL (33.0-37.0); MONO # 0.3 K/uL (0.0-0.8); MONO % 4.1 % (0.0-10.0); NEUT # 6.3 K/uL (1.8-7.0); NEUT % 75.5 % (50.0-75.0); RBC 3.7 Mil/uL (3.80-5.20); RED CELL DISTRIBUTION WIDTH 14.7 % (11.5-14.5); WHITE BLOOD COUNT 8.4 K/uL (4.8-10.8)
--- NOTE | 2017-10-25 17:53 | CT ---
PROCEDURE: CT Chest, Abdomen and Pelvis with intravenous contrast HISTORY: Hemorrhage COMPARISON: Comparison made with CT scan of the abdomen pelvis dated 2017. TECHNIQUE: IV dose administered: 100 cc Visipaque 320 Radiation dose: Total exam DLP = 387.23 mGy-cm. This CT exam was performed using one or more of the following dose reduction techniques: Automated exposure control, adjustment of the mA and/or kV according to patient size, and/or use of iterative reconstruction technique. FINDINGS: CT CHEST WITH CONTRAST: LUNGS: Small bilateral effusions and minor bibasilar atelectasis. . In addition, there is mild passive/dependent type atelectasis both posterior lower lung zones. . MEDIASTINUM: Unremarkable. Normal caliber aorta and pulmonary arterial trunk. No aortic dissection. Normal size heart. LYMPH NODES: Unremarkable. PLEURA: Unremarkable. No pneumothorax. No pleural fluid. BONES: Unremarkable. OTHER FINDINGS: None. CT ABDOMEN AND PELVIS: LIVER: Liver exhibits normal size. Mild fatty hepatic infiltration. No hepatic mass or collection. Portal and splenic veins are opacified. GALLBLADDER AND BILE DUCTS: Questionable gallbladder wall edema or small amount pericholecystic fluid. Follow-up gallbladder ultrasound recommended. PANCREAS: Unremarkable. No gross lesion or ductal dilatation. SPLEEN: Spleen exhibits normal size. ADRENALS: Unremarkable. No mass. KIDNEYS AND URETERS: Unremarkable. No hydronephrosis. No solid mass. VASCULATURE: Unremarkable. No aortic aneurysm. BOWEL: Evaluation of the bowel is somewhat limited due to the lack of oral contrast material. The stomach is incompletely distended. Visualized loops of small bowel exhibit relatively normal contour and caliber. No evidence acute mechanical small bowel obstruction. . Fluid and to a lesser degree the dry stool seen throughout the colon suggesting a diarrheal illness. There is a fluid level in the rectum. APPENDIX: Normal appendix. PERITONEUM: Unremarkable. No free fluid. No free air. . There is a small amount of air within lower anterior abdominal subcutaneous tissues consistent with recent surgery. LYMPH NODES: Unremarkable. No enlarged lymph nodes. BLADDER: Urinary bladder incompletely distended which may account for slight thick-walled appearance. Cystitis should be excluded given mildly thick appearing wall as well as small amount of intraluminal air of. Rule out recent instrumentation versus gas-forming organism. REPRODUCTIVE: Apparent hysterectomy. There is small amount of free fluid in the pelvis with infiltration changes. . No evidence to suggest hemorrhage BONES: No acute fracture. OTHER FINDINGS: None. IMPRESSION: Small bilateral effusions and and minor compressive type atelectasis is well as dependent/passive type atelectasis. Questionable small amount of pericholecystic fluid. Recommend gallbladder ultrasound. Status post hysterectomy with what appears represent some infiltration changes and fluid within the pelvis. No definitive evidence to suggest hemorrhage. Small amount of air within the urinary bladder likely due to recent instrumentation however given the minimal thick-walled appearance. Correlation with urinalysis to exclude infection with gas-forming organism. Small amount of subcutaneous air and infiltration within the anterior lower abdominal wall consistent with recent surgery. Small bilateral effusions and mild bibasilar atelectasis. There also dependent and passive type atelectatic changes present as well. Mild fatty hepatic infiltration. Findings suggest mild diarrheal illness.
[2017-10-25 20:58] LABS: BASO % 0.1 % (0.0-2.0); EOS # 0.8 K/uL (0.0-0.7); LYMPH # 0.8 K/uL (1.0-4.3); MEAN CELL VOLUME 80.7 fL (81.0-99.0); MEAN CORPUSCULAR HEMOGLOBIN 27.9 pg (27.0-31.0); MEAN CORPUSCULAR HGB CONC 34.6 g/dL (33.0-37.0); MEAN PLATELET VOLUME 8.3 fL (7.2-11.7); MONO # 0.4 K/uL (0.0-0.8); MONO % 4.5 % (0.0-10.0); NEUT # 6.3 K/uL (1.8-7.0); NEUT % 76.4 % (50.0-75.0); RBC 3.59 Mil/uL (3.80-5.20); RED CELL DISTRIBUTION WIDTH 14.8 % (11.5-14.5); WHITE BLOOD COUNT 8.3 K/uL (4.8-10.8)
[2017-10-26] MEDS: Piperacillin/Tazobact 3.375 GM in Sodium Chloride 100 ML IVPB SCH ×4 (02:00→20:30)
[2017-10-26] MEDS: Dextrose 5%/0.45% NS 1,000 ML IV SCH ×4 (04:30→21:52)
[2017-10-26 06:58] LABS: BASO % 0.2 % (0.0-2.0); EOS # 0.9 K/uL (0.0-0.7); EOS % 11.8 % (0.0-4.0); HEMOGLOBIN 10.1 g/dL (11.0-16.0); LYMPH # 1.2 K/uL (1.0-4.3); LYMPH % 16.3 % (20.0-40.0); MEAN CELL VOLUME 81.4 fL (81.0-99.0); MEAN CORPUSCULAR HEMOGLOBIN 27.7 pg (27.0-31.0); MEAN CORPUSCULAR HGB CONC 34.1 g/dL (33.0-37.0); MEAN PLATELET VOLUME 8.6 fL (7.2-11.7); MONO # 0.4 K/uL (0.0-0.8); MONO % 5.7 % (0.0-10.0); NEUT # 4.8 K/uL (1.8-7.0); RBC 3.64 Mil/uL (3.80-5.20); RED CELL DISTRIBUTION WIDTH 14.6 % (11.5-14.5); WHITE BLOOD COUNT 7.3 K/uL (4.8-10.8)
--- NOTE | 2017-10-26 08:12 | CP.PCM.PN ---
<Espinoza Lee - Last Filed: 10/26/17 08:09> Subjective - Date & Time of Evaluation Date of Evaluation: 10/26/17 Time of Evaluation: 08:09 - Subjective Subjective: General Surgery Progress Note For Dr. Valdivia This 42F was seen and examined this AM at bedside. No acute events overnight. Patient reports that while she still has some pain it is significantly improved however it hurts when she coughts. She denies flatus or BM. She denies any nausea or vomiting fevers chills or chest pain. Arnaud drain with 360cc serosanguinous over the last 24 hours output appearing less sanguineous than yesterday Objective - Vital Signs/Intake and Output Vital Signs (last 24 hours): Temp Pulse Resp BP Pulse Ox 98.3 F 79 16 120/78 96 10/26/17 04:00 10/26/17 07:01 10/26/17 07:01 10/26/17 07:01 10/26/17 07:01 Intake and Output: 10/26/17 10/26/17 06:59 18:59 Intake Total 1200 100 Output Total 1235 210 Balance -35 -110 - Medications Medications: Current Medications Acetaminophen (Tylenol 325mg Tab) 975 mg PO Q6 PRN PRN Reason: Fever >100.4 F Last Admin: 10/23/17 16:17 Dose: 975 mg Hydromorphone HCl (Dilaudid) 1 mg IVP Q4H PRN PRN Reason: Pain, severe (8-10) Piperacillin Sod/Tazobactam (Sod 3.375 gm/ Sodium Chloride) 100 mls @ 200 mls/ hr IVPB Q6H [facility] PRN Reason: Protocol Last Admin: 10/26/17 07:50 Dose: 200 mls/hr Dextrose/Sodium Chloride (Dextrose 5%/0.45% Ns 1000 Ml) 1,000 mls @ 100 mls/hr IV .Q10H [facility] Last Admin: 10/26/17 04:30 Dose: Not Given Morphine Sulfate (Morphine) 4 mg IVP Q4H PRN PRN Reason: Pain, moderate (4-7) Last Admin: 10/25/17 23:54 Dose: 4 mg Ondansetron HCl (Zofran Inj) 4 mg IVP Q4 PRN PRN Reason: Nausea/Vomiting Pantoprazole Sodium (Protonix Inj) 40 mg IVP DAILY [facility] Last Admin: 10/25/17 12:11 Dose: 40 mg - Labs Labs: 10/26/17 06:51 10/25/17 03:06 PT 12.3 SECONDS (9.7-12.2) H 10/25/17 03:06 INR 1.1 10/25/17 03:06 APTT 26 SECONDS (21-34) 10/25/17 03:06 - Constitutional Appears: Non-toxic, No Acute Distress - Head Exam Head Exam: ATRAUMATIC, NORMOCEPHALIC - Eye Exam Eye Exam: EOMI - ENT Exam ENT Exam: Mucous Membranes Moist - Respiratory Exam Respiratory Exam: NORMAL BREATHING PATTERN - Cardiovascular Exam Cardiovascular Exam: +S1, +S2 - GI/Abdominal Exam GI & Abdominal Exam: Soft. absent: Distended, Firm, Guarding, Rigid, Tenderness - Extremities Exam Extremities Exam: Normal Inspection - Neurological Exam Neurological Exam: Alert, Awake - Psychiatric Exam Psychiatric exam: Normal Affect, Normal Mood Assessment and Plan - Assessment and Plan (Free Text) Assessment: 42F POD# 4 s/p hysterectomy and RAMON, small bowel resection and anastamosis POD# 1 s/p revision of anastamosis due to bleeding. Hgb stable x 4 bleeding appears to have resolved. Bowens output 2675cc Arnaud 360cc serosang over 24hrs and clearing up Plan: NPO D/C Bowens Replete electrolytes as needed Monitor Drain outputs Incentive spirometer SCDs Further recs per Dr. Shea Lee PGY2 <Jonny Valdivia B - Last Filed: 10/26/17 20:46> Objective - Vital Signs/Intake and Output Vital Signs (last 24 hours): Temp Pulse Resp BP Pulse Ox 98.3 F 72 18 121/80 98 10/26/17 16:00 10/26/17 16:00 10/26/17 16:00 10/26/17 16:00 10/26/17 16:00 Intake and Output: 10/26/17 10/27/17 18:59 06:59 Intake Total 1200 100 Output Total 1280 Balance -80 100 - Medications Medications: Current Medications Acetaminophen (Tylenol 325mg Tab) 975 mg PO Q6 PRN PRN Reason: Fever >100.4 F Last Admin: 10/23/17 16:17 Dose: 975 mg Hydromorphone HCl (Dilaudid) 1 mg IVP Q4H PRN PRN Reason: Pain, severe (8-10) Dextrose/Sodium Chloride (Dextrose 5%/0.45% Ns 1000 Ml) 1,000 mls @ 100 mls/hr IV .Q10H [facility] Last Admin: 10/26/17 15:18 Dose: Not Given Morphine Sulfate (Morphine) 4 mg IVP Q4H PRN PRN Reason: Pain, moderate (4-7) Last Admin: 10/26/17 15:20 Dose: 4 mg Ondansetron HCl (Zofran Inj) 4 mg IVP Q4 PRN PRN Reason: Nausea/Vomiting Pantoprazole Sodium (Protonix Inj) 40 mg IVP DAILY [facility] Last Admin: 10/26/17 09:22 Dose: 40 mg - Labs Labs: 10/26/17 06:51 10/25/17 03:06 PT 12.3 SECONDS (9.7-12.2) H 10/25/17 03:06 INR 1.1 10/25/17 03:06 APTT 26 SECONDS (21-34) 10/25/17 03:06 Attending/Attestation - Attestation I have fully participated in the care of the patient.: Yes I have reviewed all pertinent clinical information, including history, physical exam and plan: Yes Notes (Text): Pt is improving clinically Hb stable Drain out put 100 cc SCD OOB to walk Transfer pt to floor C/W IV antibiotics Plan d.w pt in detail
[2017-10-26] MEDS: Morphine 4 MG/ML VIAL IVP PRN ×2 (08:53→15:20)
[2017-10-27] MEDS: Dextrose 5%/0.45% NS 1,000 ML IV SCH ×4 (00:30→21:31)
--- NOTE | 2017-10-27 04:23 | OP ---
PROCEDURE DATE: 10/24/2017 PREOPERATIVE DIAGNOSES: 1. Acute blood loss anemia with hemoglobin of 6.5. 2. Possible lower gastrointestinal bleed. 3. Possible intraperitoneal bleed. 4. Heparin-induced coagulopathy. POSTOPERATIVE DIAGNOSES: 1. Acute blood loss anemia with hemoglobin of 6.5 on postoperative day #2. 2. Pelvic and intraabdominal bleed of 600 mL. 3. Lower gastrointestinal bleed, possible anastomotic bleed. 4. Heparin-induced coagulopathy. PROCEDURES DONE: 1. Exploratory laparoscopy. 2. Evacuation of pelvic and intraabdominal hematoma. 3. Small-bowel resection and anastomosis of previous anastomotic site. SURGEON: Jonny Valdivia MD. PAIL TESTER: Espinoza Lee, PGY-2 resident. TYPE OF ANESTHESIA: General endotracheal tube anesthesia. ESTIMATED BLOOD LOSS: Around 600 mL. DRAINS: A 19-Montserratian Arnaud drain was placed in the pelvis. COMPLICATIONS: None. PATHOLOGY: The resected previous small bowel anastomosis was send for the pathology. INTRAOPERATIVE FINDINGS: The patient had approximately 600 mL of blood in the pelvis as well as into the peritoneum at the previous dissection as well as around the liver that was evacuated. The patient also had cecum, ascending colon and transverse colon full of blood and anastomotic site look mildly hyperemic with possible anastomotic bleed and rest of the abdominal cavity was within normal limit. DESCRIPTION OF PROCEDURE: On intraoperative steps, this 42-year-old female, who was postoperative day #2 and the patient found to have acute blood loss anemia from approximately hemoglobin of 15 to 12 to 8.5 to 6.5 on postoperative day #2. The patient had received heparin after 24 hours and the patient also had lower GI bleed for three times and due to acute blood loss anemia as well as lower GI bleed with a possibility of coagulopathy induced acute bleeding, the patient was consented for the exploratory laparoscopy as well as possible bowel resection and control of bleeding. The patient was brought to the OR, placed supine on the operating table. After induction of the anesthesia, the abdomen was prepped and draped in the usual sterile fashion. Using the previous port site, the peritoneal cavity was entered and the patient found to have 600 mL of blood in the pelvis as well as into the previous dissection site and around the liver that was evacuated and peritoneal cavity was suctioned and irrigated. The patient also had cecum, ascending colon and transverse colon full of blood and anastomotic site looked mildly hyperemic and now decision was made to do the resection of the small bowel at the anastomotic site for possible anastomotic bleed. The small bowel was brought to the umbilical port site after extending the incision and resection anastomosis of the small bowel was done and anastomotic site was placed back into the peritoneal cavity. Thorough inspection of the abdominal cavity was done and there was no apparent bleeding source identified. Now, the umbilical incision site was closed in two layers, the subcu with interrupted 0 Vicryl multiple sutures and skin with 3-0 Vicryl and then 4-0 Monocryl and all the port site was also closed and resected part of the small bowel with anastomosis was sent off the table for the pathology. There was no apparent complication. The 19-Montserratian Arnaud drain was placed before removing the port and dry sterile dressing was applied. The patient tolerated the procedure well. Count of the instrument and gauze was correct. There was no apparent complication. Jonny Valdivia MD
[2017-10-27 10:48] LABS: BASO % 0.3 % (0.0-2.0); EOS # 0.5 K/uL (0.0-0.7); EOS % 8.8 % (0.0-4.0); HEMOGLOBIN 10.9 g/dL (11.0-16.0); LYMPH % 16.6 % (20.0-40.0); MEAN CELL VOLUME 80.3 fL (81.0-99.0); MEAN CORPUSCULAR HEMOGLOBIN 28.5 pg (27.0-31.0); MEAN CORPUSCULAR HGB CONC 35.5 g/dL (33.0-37.0); MEAN PLATELET VOLUME 8.2 fL (7.2-11.7); MONO # 0.4 K/uL (0.0-0.8); MONO % 6.3 % (0.0-10.0); NEUT # 4.1 K/uL (1.8-7.0); RBC 3.82 Mil/uL (3.80-5.20); RED CELL DISTRIBUTION WIDTH 14.7 % (11.5-14.5); WHITE BLOOD COUNT 6.1 K/uL (4.8-10.8)
[2017-10-27 11:11] LABS: BLOOD UREA NITROGEN 3 mg/dL (7-17); CALCIUM 8.3 mg/dl (8.6-10.4); GFR AFRICAN-AMERICAN > 60; GFR NON-AFRICAN AMERICAN > 60
--- NOTE | 2017-10-27 14:51 | CP.PCM.PN ---
<Parth Engle - Last Filed: 10/27/17 14:51> Subjective - Date & Time of Evaluation Date of Evaluation: 10/27/17 Time of Evaluation: 14:49 - Subjective Subjective: Surgery: Dr. Valdivia Pt seen and examined. Resting comfortably in bed. Pain controlled. No N/V. Passing flatus. No BM. Objective - Vital Signs/Intake and Output Vital Signs (last 24 hours): Temp Pulse Resp BP Pulse Ox 98 F 80 18 109/72 99 10/27/17 08:00 10/27/17 08:00 10/27/17 08:00 10/27/17 08:00 10/27/17 08:00 Intake and Output: 10/27/17 10/27/17 06:59 18:59 Intake Total 100 1000 Output Total 30 Balance 100 970 - Medications Medications: Current Medications Enoxaparin Sodium (Lovenox) 40 mg SC DAILY [facility] Dextrose/Sodium Chloride (Dextrose 5%/0.45% Ns 1000 Ml) 1,000 mls @ 50 mls/hr IV .Q20H [facility] Ondansetron HCl (Zofran Inj) 4 mg IVP Q4 PRN PRN Reason: Nausea/Vomiting Oxycodone/Acetaminophen (Percocet 5/325 Mg Tab) 1 tab PO Q4H PRN PRN Reason: Pain, moderate (4-7) Stop: 10/30/17 08:01 Pantoprazole Sodium (Protonix Inj) 40 mg IVP DAILY [facility] Last Admin: 10/27/17 09:41 Dose: 40 mg Potassium Chloride (K-Dur 20 Meq Er Tab) 20 meq PO TID CLAUS - Labs Labs: 10/27/17 10:38 10/27/17 10:38 PT 12.3 SECONDS (9.7-12.2) H 10/25/17 03:06 INR 1.1 10/25/17 03:06 APTT 26 SECONDS (21-34) 10/25/17 03:06 - Constitutional Appears: Non-toxic, No Acute Distress - Head Exam Head Exam: ATRAUMATIC, NORMOCEPHALIC - Eye Exam Eye Exam: EOMI - ENT Exam ENT Exam: Mucous Membranes Moist - Neck Exam Neck Exam: Full ROM - Respiratory Exam Respiratory Exam: NORMAL BREATHING PATTERN. absent: Accessory Muscle Use, Respiratory Distress - GI/Abdominal Exam GI & Abdominal Exam: Soft. absent: Distended, Firm, Guarding, Rigid, Tenderness - Extremities Exam Extremities Exam: absent: Calf Tenderness, Pedal Edema - Neurological Exam Neurological Exam: Alert, Awake, Oriented x3 Assessment and Plan - Assessment and Plan (Free Text) Assessment: 42F POD# 5 s/p hysterectomy and RAMON, small bowel resection and anastamosis POD# 2 s/p revision of anastamosis due to bleeding. -Will start CLD -DVT ppx -Replete potassium -Consult heme/onc -daily labs -d/w attending Kadie PGY4 <Jonny Valdivia - Last Filed: 10/30/17 15:03> Objective - Vital Signs/Intake and Output Vital Signs (last 24 hours): Temp Pulse Resp BP Pulse Ox 97.6 F 84 20 113/80 100 10/29/17 16:00 10/29/17 16:00 10/29/17 16:00 10/29/17 16:00 10/29/17 16:00 - Labs Labs: 10/29/17 08:55 10/29/17 08:55 PT 12.3 SECONDS (9.7-12.2) H 10/25/17 03:06 INR 1.1 10/25/17 03:06 APTT 26 SECONDS (21-34) 10/25/17 03:06 Attending/Attestation - Attestation I have personally seen and examined this patient.: Yes I have fully participated in the care of the patient.: Yes I have reviewed all pertinent clinical information, including history, physical exam and plan: Yes Notes (Text): Pt was seen and examined at bedside Agree with above note and assessment Pt is improving clinically HB is stable Still have Black tarry stool Clear liquid diet Plan d.w pt in detail Risk and benefit explained in detail.
[2017-10-27] MEDS: Potassium Chloride 20 mEq ER Tab PO SCH ×2 (15:11→18:22)
[2017-10-27] MEDS: Enoxaparin 40 mg Syringe SC SCH (16:04)
[2017-10-27 17:32] VITALS: RESP 20
[2017-10-27] MEDS: Oxycodone/Acetaminophen 5/325 mg Tab PO PRN (22:51)
[2017-10-28 07:10] LABS: HEMOGLOBIN 10.5 g/dL (11.0-16.0); MEAN CORPUSCULAR HEMOGLOBIN 28.3 pg (27.0-31.0); MEAN PLATELET VOLUME 8.1 fL (7.2-11.7); RBC 3.7 Mil/uL (3.80-5.20); RED CELL DISTRIBUTION WIDTH 14.7 % (11.5-14.5); WHITE BLOOD COUNT 6.1 K/uL (4.8-10.8)
[2017-10-28 07:34] LABS: BLOOD UREA NITROGEN 4 mg/dL (7-17); CALCIUM 8.4 mg/dl (8.6-10.4); GFR AFRICAN-AMERICAN > 60; GFR NON-AFRICAN AMERICAN > 60
[2017-10-28] MEDS: Potassium Chloride 20 mEq ER Tab PO SCH ×3 (09:43→17:36)
[2017-10-28] MEDS: Dextrose 5%/0.45% NS 1,000 ML IV SCH (10:20)
[2017-10-28] MEDS: Enoxaparin 40 mg Syringe SC SCH (11:51)
--- NOTE | 2017-10-28 13:42 | CP.PCM.CON ---
History of Present Illness - History of Present Illness History of Present Illness: patient seen . will dictate full consult Past Patient History - Past Medical History & Family History Past Medical History?: Yes - Past Social History Smoking Status: Never Smoked - GENITOURINARY/GYNECOLOGICAL Hx Genitourinary Disorders: Yes Hx Hematuria: Yes Other/Comment: HX: PELVIC PAIN. HX: PELVIC MASS - SURGICAL HISTORY Hx Surgeries: Yes Other/Comment: HX: DIAGNOSTIC LAP. FOR PELVIC PAIN - ANESTHESIA Hx Anesthesia: Yes Hx Anesthesia Reactions: No Hx Malignant Hyperthermia: No Has any member of the family had a problem w/ anesthesia?: No Meds Allergies/Adverse Reactions: Allergies Allergy/AdvReac Type Severity Reaction Status Date / Time No Known Allergies Allergy Verified 06/27/17 12:57 - Medications Medications: Current Medications Enoxaparin Sodium (Lovenox) 40 mg SC DAILY [facility] Last Admin: 10/28/17 11:51 Dose: Not Given Dextrose/Sodium Chloride (Dextrose 5%/0.45% Ns 1000 Ml) 1,000 mls @ 50 mls/hr IV .Q20H [facility] Last Admin: 10/28/17 10:20 Dose: Not Given Ondansetron HCl (Zofran Inj) 4 mg IVP Q4 PRN PRN Reason: Nausea/Vomiting Oxycodone/Acetaminophen (Percocet 5/325 Mg Tab) 1 tab PO Q4H PRN PRN Reason: Pain, moderate (4-7) Stop: 10/30/17 08:01 Last Admin: 10/27/17 22:51 Dose: 1 tab Pantoprazole Sodium (Protonix Inj) 40 mg IVP DAILY [facility] Last Admin: 10/28/17 09:43 Dose: 40 mg Potassium Chloride (K-Dur 20 Meq Er Tab) 20 meq PO TID [facility] Last Admin: 10/28/17 09:43 Dose: 20 meq Results - Vital Signs Recent Vital Signs: Last Vital Signs Temp 97.9 F 10/28/17 07:00 Pulse 75 10/28/17 07:00 Resp 20 10/28/17 07:00 BP 129/84 10/28/17 07:00 Pulse Ox 98 10/28/17 07:00 - Labs Result Diagrams: 10/28/17 06:54 10/28/17 06:54 Labs: Laboratory Results - last 24 hr 10/28/17 10/28/17 06:54 06:54 WBC 6.1 RBC 3.70 L Hgb 10.5 L Hct 29.9 L MCV 81.0 MCH 28.3 MCHC 35.0 RDW 14.7 H Plt Count 296 MPV 8.1 Sodium 142 Potassium 3.6 Chloride 108 H Carbon Dioxide 27 Anion Gap 11 BUN 4 L Creatinine 0.5 L Est GFR ( Amer) > 60 Est GFR (Non-Af Amer) > 60 Random Glucose 105 Calcium 8.4 L Phosphorus 3.2 Magnesium 2.0
--- NOTE | 2017-10-28 15:43 | CP.PCM.PN ---
<Finesse Thomas - Last Filed: 10/28/17 16:38> Subjective - Date & Time of Evaluation Date of Evaluation: 10/28/17 Time of Evaluation: 08:45 - Subjective Subjective: Patient seen and examined. Reports having 2 dark loose BMs. Tolerating liquid diet. Denies fever/chills. Ambulating. Objective - Vital Signs/Intake and Output Vital Signs (last 24 hours): Temp Pulse Resp BP Pulse Ox 97.9 F 75 20 129/84 98 10/28/17 07:00 10/28/17 07:00 10/28/17 07:00 10/28/17 07:00 10/28/17 07:00 Intake and Output: 10/28/17 10/28/17 06:59 18:59 Intake Total 2300 Output Total 40 Balance 2260 - Medications Medications: Current Medications Enoxaparin Sodium (Lovenox) 40 mg SC DAILY [facility] Last Admin: 10/28/17 11:51 Dose: Not Given Dextrose/Sodium Chloride (Dextrose 5%/0.45% Ns 1000 Ml) 1,000 mls @ 50 mls/hr IV .Q20H [facility] Last Admin: 10/28/17 10:20 Dose: Not Given Ondansetron HCl (Zofran Inj) 4 mg IVP Q4 PRN PRN Reason: Nausea/Vomiting Oxycodone/Acetaminophen (Percocet 5/325 Mg Tab) 1 tab PO Q4H PRN PRN Reason: Pain, moderate (4-7) Stop: 10/30/17 08:01 Last Admin: 10/27/17 22:51 Dose: 1 tab Pantoprazole Sodium (Protonix Inj) 40 mg IVP DAILY [facility] Last Admin: 10/28/17 09:43 Dose: 40 mg Potassium Chloride (K-Dur 20 Meq Er Tab) 20 meq PO TID [facility] Last Admin: 10/28/17 15:00 Dose: 20 meq - Labs Labs: 10/28/17 06:54 10/28/17 06:54 PT 12.3 SECONDS (9.7-12.2) H 10/25/17 03:06 INR 1.1 10/25/17 03:06 APTT 26 SECONDS (21-34) 10/25/17 03:06 - Constitutional Appears: Non-toxic, No Acute Distress - Eye Exam Eye Exam: Normal appearance - ENT Exam ENT Exam: Normal Exam - Respiratory Exam Respiratory Exam: NORMAL BREATHING PATTERN - Neurological Exam Neurological Exam: Alert, Awake, Oriented x3 - Psychiatric Exam Psychiatric exam: Normal Mood - Skin Skin Exam: Dry, Intact, Warm Assessment and Plan - Assessment and Plan (Free Text) Assessment: 42F POD# 6 s/p hysterectomy and RAMON, small bowel resection and anastamosis POD# 3 s/p revision of anastamosis due to bleeding. Plan: -Resume CLD -Monitor bowel movement -F/u heme/onc recs -Monitor Hgb -daily labs -encourage ambulation -d/w attending Kareem PGY3 <Jonny Valdivia - Last Filed: 10/30/17 15:16> Objective - Vital Signs/Intake and Output Vital Signs (last 24 hours): Temp Pulse Resp BP Pulse Ox 97.6 F 84 20 113/80 100 10/29/17 16:00 10/29/17 16:00 10/29/17 16:00 10/29/17 16:00 10/29/17 16:00 - Labs Labs: 10/29/17 08:55 10/29/17 08:55 PT 12.3 SECONDS (9.7-12.2) H 10/25/17 03:06 INR 1.1 10/25/17 03:06 APTT 26 SECONDS (21-34) 10/25/17 03:06 Attending/Attestation - Attestation I have personally seen and examined this patient.: Yes I have fully participated in the care of the patient.: Yes I have reviewed all pertinent clinical information, including history, physical exam and plan: Yes Notes (Text): Pt was seen and examined at bedside Agree with above note and assessment Pt is improving clinically Tolerating diet Oncology consult appreciated DC plan Plan d.w pt in detail Risk and benefit explained in detail.
[2017-10-28] MEDS: Benzocaine/Menthol (Cepacol) Lozenge MT PRN (18:39)
[2017-10-28] MEDS: Oxycodone/Acetaminophen 5/325 mg Tab PO PRN (19:49)
--- NOTE | 2017-10-29 00:21 | CP.PCM.PN ---
Subjective - Date & Time of Evaluation Date of Evaluation: 10/29/17 Objective - Vital Signs/Intake and Output Vital Signs (last 24 hours): Temp Pulse Resp BP Pulse Ox 98.3 F 75 20 105/71 99 10/29/17 00:02 10/29/17 00:02 10/29/17 00:02 10/29/17 00:02 10/29/17 00:02 Intake and Output: 10/28/17 10/29/17 18:59 06:59 Intake Total 700 750 Output Total 40 20 Balance 660 730 - Medications Medications: Current Medications Benzocaine/Menthol (Cepacol Sore Throat) 1 eboni MT PRN PRN PRN Reason: Sore Throat Last Admin: 10/28/17 18:39 Dose: 1 eboni Enoxaparin Sodium (Lovenox) 40 mg SC DAILY [facility] Last Admin: 10/28/17 11:51 Dose: Not Given Dextrose/Sodium Chloride (Dextrose 5%/0.45% Ns 1000 Ml) 1,000 mls @ 50 mls/hr IV .Q20H [facility] Last Admin: 10/28/17 10:20 Dose: Not Given Ondansetron HCl (Zofran Inj) 4 mg IVP Q4 PRN PRN Reason: Nausea/Vomiting Oxycodone/Acetaminophen (Percocet 5/325 Mg Tab) 1 tab PO Q4H PRN PRN Reason: Pain, moderate (4-7) Stop: 10/30/17 08:01 Last Admin: 10/28/17 19:49 Dose: 1 tab Pantoprazole Sodium (Protonix Inj) 40 mg IVP DAILY [facility] Last Admin: 10/28/17 09:43 Dose: 40 mg Potassium Chloride (K-Dur 20 Meq Er Tab) 20 meq PO TID [facility] Last Admin: 10/28/17 17:36 Dose: 20 meq - Labs Labs: 10/28/17 06:54 10/28/17 06:54 PT 12.3 SECONDS (9.7-12.2) H 10/25/17 03:06 INR 1.1 10/25/17 03:06 APTT 26 SECONDS (21-34) 10/25/17 03:06
[2017-10-29] MEDS: Dextrose 5%/0.45% NS 1,000 ML IV SCH ×2 (07:08→14:31)
[2017-10-29 07:32] VITALS: O2SAT 100
--- NOTE | 2017-10-29 08:53 | CP.PCM.PN ---
<Osito Pederson - Last Filed: 10/29/17 10:56> Subjective - Date & Time of Evaluation Date of Evaluation: 10/29/17 Time of Evaluation: 07:30 - Subjective Subjective: General Surgery Progress Note for Dr. Valdivia Pt seen and evaluated this AM. Resting comfortable in bed. No acute events overnight. 1 soft, dark brown BM this morning. Denies abdominal pain. Denies n/v /d, cough, f/c, SOB, CP, or urinary symptoms. Objective - Vital Signs/Intake and Output Vital Signs (last 24 hours): Temp Pulse Resp BP Pulse Ox 98.2 F 91 H 20 104/71 100 10/29/17 07:31 10/29/17 07:31 10/29/17 07:31 10/29/17 07:31 10/29/17 07:31 Intake and Output: 10/29/17 10/29/17 06:59 18:59 Intake Total 1390 Output Total 40 Balance 1350 - Medications Medications: Current Medications Benzocaine/Menthol (Cepacol Sore Throat) 1 eboni MT PRN PRN PRN Reason: Sore Throat Last Admin: 10/28/17 18:39 Dose: 1 eboni Enoxaparin Sodium (Lovenox) 40 mg SC DAILY [facility] Last Admin: 10/28/17 11:51 Dose: Not Given Dextrose/Sodium Chloride (Dextrose 5%/0.45% Ns 1000 Ml) 1,000 mls @ 50 mls/hr IV .Q20H [facility] Last Admin: 10/29/17 07:08 Dose: Not Given Ondansetron HCl (Zofran Inj) 4 mg IVP Q4 PRN PRN Reason: Nausea/Vomiting Oxycodone/Acetaminophen (Percocet 5/325 Mg Tab) 1 tab PO Q4H PRN PRN Reason: Pain, moderate (4-7) Stop: 10/30/17 08:01 Last Admin: 10/28/17 19:49 Dose: 1 tab Pantoprazole Sodium (Protonix Inj) 40 mg IVP DAILY [facility] Last Admin: 10/28/17 09:43 Dose: 40 mg Potassium Chloride (K-Dur 20 Meq Er Tab) 20 meq PO TID [facility] Last Admin: 10/28/17 17:36 Dose: 20 meq - Labs Labs: 10/28/17 06:54 07/03/18 06:54 PT 12.3 SECONDS (9.7-12.2) H 10/25/17 03:06 INR 1.1 10/25/17 03:06 APTT 26 SECONDS (21-34) 10/25/17 03:06 - Constitutional Appears: Well - Head Exam Head Exam: ATRAUMATIC, NORMAL INSPECTION, NORMOCEPHALIC - Eye Exam Eye Exam: EOMI, Normal appearance, PERRL - Respiratory Exam Respiratory Exam: Clear to Ausculation Bilateral, NORMAL BREATHING PATTERN - Cardiovascular Exam Cardiovascular Exam: REGULAR RHYTHM, +S1, +S2. absent: Murmur - GI/Abdominal Exam GI & Abdominal Exam: Soft, Normal Bowel Sounds. absent: Tenderness Additional comments: Drain with scant serosanguinous fluid. Dressing c/d/i over drain. - Neurological Exam Neurological Exam: Alert, Awake, Oriented x3 Assessment and Plan - Assessment and Plan (Free Text) Assessment: 42F POD#7 s/p hysterectomy and RAMON, small bowel resection and anastamosis POD#4 s/p revision of anastamosis due to bleeding. Plan: GIST tumor - Pt will f/u with Dr. Foster oncologist c/w pain control cepachol ordered for cough advanced diet to pureed as tolerated encouraged ambulation and use of IS Begin discharge planning Further recs per Dr. Shea Pederson PGY1 <Jonny Valdivia - Last Filed: 10/30/17 15:30> Objective - Vital Signs/Intake and Output Vital Signs (last 24 hours): Temp Pulse Resp BP Pulse Ox 97.6 F 84 20 113/80 100 10/29/17 16:00 10/29/17 16:00 10/29/17 16:00 10/29/17 16:00 10/29/17 16:00 - Labs Labs: 10/29/17 08:55 10/29/17 08:55 PT 12.3 SECONDS (9.7-12.2) H 10/25/17 03:06 INR 1.1 10/25/17 03:06 APTT 26 SECONDS (21-34) 10/25/17 03:06 Attending/Attestation - Attestation I have fully participated in the care of the patient.: Yes I have reviewed all pertinent clinical information, including history, physical exam and plan: Yes Notes (Text): Pt is improving clinically Tolerating soft diet Passing gas and have normal bowel movement DC home with Po antibiotics f/u as out pt Plan d.w pt in detail
[2017-10-29 09:08] LABS: BASO % 0.5 % (0.0-2.0); EOS # 0.7 K/uL (0.0-0.7); EOS % 8.1 % (0.0-4.0); HEMOGLOBIN 12.1 g/dL (11.0-16.0); LYMPH # 2.1 K/uL (1.0-4.3); LYMPH % 24.4 % (20.0-40.0); MEAN CELL VOLUME 81.8 fL (81.0-99.0); MEAN CORPUSCULAR HGB CONC 34.3 g/dL (33.0-37.0); MEAN PLATELET VOLUME 8.2 fL (7.2-11.7); MONO # 0.5 K/uL (0.0-0.8); MONO % 6.4 % (0.0-10.0); NEUT # 5.2 K/uL (1.8-7.0); NEUT % 60.6 % (50.0-75.0); NRBC % 0.1 % (0.0-2.0); RBC 4.31 Mil/uL (3.80-5.20); WHITE BLOOD COUNT 8.5 K/uL (4.8-10.8)
--- NOTE | 2017-10-29 09:10 | CP.PCM.DIS ---
Provider - Provider Date of Admission: 10/22/17 11:23 Attending physician: Jonny Valdivia MD Time Spent in preparation of Discharge (in minutes): 30 Hospital Course - Lab Results Lab Results: Micro Results 10/26/17 19:43 Nose MRSA Culture - Final MRSA NOT DETECTED 10/24/17 22:46 Naris MRSA Culture (Admit) - Final MRSA NOT DETECTED Most Recent Lab Values WBC 6.1 K/uL (4.8-10.8) 10/28/17 06:54 RBC 3.70 Mil/uL (3.80-5.20) L 10/28/17 06:54 Hgb 10.5 g/dL (11.0-16.0) L 10/28/17 06:54 Hct 29.9 % (34.0-47.0) L 10/28/17 06:54 MCV 81.0 fL (81.0-99.0) 10/28/17 06:54 MCH 28.3 pg (27.0-31.0) 10/28/17 06:54 MCHC 35.0 g/dL (33.0-37.0) 10/28/17 06:54 RDW 14.7 % (11.5-14.5) H 10/28/17 06:54 Plt Count 296 K/uL (130-400) 10/28/17 06:54 MPV 8.1 fL (7.2-11.7) 10/28/17 06:54 Neut % (Auto) 68.0 % (50.0-75.0) 10/27/17 10:38 Lymph % (Auto) 16.6 % (20.0-40.0) L 10/27/17 10:38 Worth % (Auto) 6.3 % (0.0-10.0) 10/27/17 10:38 Eos % (Auto) 8.8 % (0.0-4.0) H 10/27/17 10:38 Baso % (Auto) 0.3 % (0.0-2.0) 10/27/17 10:38 Neut # (Auto) 4.1 K/uL (1.8-7.0) 10/27/17 10:38 Lymph # (Auto) 1.0 K/uL (1.0-4.3) 10/27/17 10:38 Worth # (Auto) 0.4 K/uL (0.0-0.8) 10/27/17 10:38 Eos # (Auto) 0.5 K/uL (0.0-0.7) 10/27/17 10:38 Baso # (Auto) 0.0 K/uL (0.0-0.2) 10/27/17 10:38 Neutrophils % (Manual) 79 % (50-75) H 10/25/17 03:06 Lymphocytes % (Manual) 9 % (20-40) L 10/25/17 03:06 Monocytes % (Manual) 3 % (0-10) 10/25/17 03:06 Eosinophils % (Manual) 8 % (0-4) H 10/25/17 03:06 Basophils % (Manual) 1 % (0-2) 10/25/17 03:06 Platelet Estimate Normal (NORMAL) 10/25/17 03:06 Polychromasia Slight 10/24/17 08:22 Hypochromasia (manual) Slight 10/24/17 08:22 Microcytosis (manual) Slight 10/24/17 08:22 Rouleaux Slight 10/25/17 03:06 PT 12.3 SECONDS (9.7-12.2) H 10/25/17 03:06 INR 1.1 10/25/17 03:06 APTT 26 SECONDS (21-34) 10/25/17 03:06 Fibrinogen 212 mg/dL (200-400) 10/24/17 21:54 Sodium 142 mmol/L (132-148) 10/28/17 06:54 Potassium 3.6 mmol/L (3.6-5.2) 10/28/17 06:54 Chloride 108 mmol/L (98-107) H 10/28/17 06:54 Carbon Dioxide 27 mmol/L (22-30) 10/28/17 06:54 Anion Gap 11 (10-20) 10/28/17 06:54 BUN 4 mg/dL (7-17) L 10/28/17 06:54 Creatinine 0.5 mg/dL (0.7-1.2) L 10/28/17 06:54 Est GFR ( Amer) > 60 10/28/17 06:54 Est GFR (Non-Af Amer) > 60 10/28/17 06:54 Random Glucose 105 mg/dL (65-105) 10/28/17 06:54 Lactic Acid 0.8 mmol/L (0.7-2.1) 10/25/17 09:21 Calcium 8.4 mg/dl (8.6-10.4) L 10/28/17 06:54 Phosphorus 3.2 mg/dL (2.5-4.5) 10/28/17 06:54 Magnesium 2.0 mg/dL (1.6-2.3) 10/28/17 06:54 Total Bilirubin 0.9 mg/dL (0.2-1.3) 10/25/17 03:06 AST 20 U/L (14-36) 10/25/17 03:06 ALT 34 U/L (9-52) 10/25/17 03:06 Alkaline Phosphatase 36 U/L (38-126) L 10/25/17 03:06 CK-MB (Mass) 0.31 ng/mL (0.0-3.38) 10/25/17 03:06 Troponin I < 0.0120 ng/mL (0.00-0.120) 10/25/17 03:06 NT-Pro-B Natriuret Pep 1210 pg/mL (0-450) H 10/25/17 03:06 Total Protein 5.9 g/dL (6.3-8.3) L 10/25/17 03:06 Albumin 3.1 g/dL (3.5-5.0) L 10/25/17 03:06 Globulin 2.8 gm/dL (2.2-3.9) 10/25/17 03:06 Albumin/Globulin Ratio 1.1 (1.0-2.1) 10/25/17 03:06 Stool Occult Blood Positive (NEGATIVE) H 10/27/17 12:10 Blood Type B POSITIVE 10/24/17 11:09 Antibody Screen Positive 10/24/17 11:09 Antibody Identification Cancelled 10/22/17 07:15 - Hospital Course Hospital Course: Pt came om 10/21/17 for hysterectomy and RAMON secondary to symptomatic fibroids with small bowel resection of mass and anastamosis. The surgery was performed by Dr. Valdivia. 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 She will be following up with oncology Dr. Foster for further management. On the first post operative day patients pain was controlled and started on a clear liquid diet as tolerated. On post op day 2 her hemoglobin began to drop from 12.3 to 8.9. We discontinued her heparin, transfused 2 units PRBCs, and 2 FFP. We monitored with serial H/H's and put her on an NPO diet. After the transfusion her hemoglobin continued to drop to 6.5. CT scan was unremarkable and patient was taken to the OR emergently. On 10/25/17 Dr. Valdivia performed an Exploratory Laparoscopy with small bowel anastamosis resection and reanastamosis because her colon was filled with blood at the previous anastamosis site. A drain was placed. Patient was taken to recovery and monitored. On 10/27 she complained of several black tarry stools that decreased in frequency over the course of her stay. Her pain was well controlled. We repleted electrolytes and encouraged incentive spirometer use and ambulation. Her diet was advanced to a pureed diet on 10/29 that she will continue at home until directed otherwise by Dr. Valdivia during her follow up visit. Discharge Exam - Head Exam Head Exam: ATRAUMATIC, NORMAL INSPECTION, NORMOCEPHALIC - Eye Exam Eye Exam: Normal appearance - ENT Exam ENT Exam: Normal External Ear Exam - Neck Exam Neck exam: Normal Inspection - Respiratory Exam Respiratory Exam: NORMAL BREATHING PATTERN, UNREMARKABLE - Cardiovascular Exam Cardiovascular Exam: REGULAR RHYTHM - GI/Abdominal Exam GI & Abdominal Exam: Normal Bowel Sounds, Soft, Unremarkable. absent: Distended , Firm, Guarding, Rebound, Rigid - Neurological Exam Neurological exam: Alert, Normal Gait - Skin Additional comments: Dressings in place c/d/i Discharge Plan - Discharge Medications Prescriptions: levoFLOXacin [Levaquin] 500 mg PO DAILY 5 Days #5 tab - Follow Up Plan Condition: GOOD Disposition: HOME/ ROUTINE Patient education suggested?: Yes Instructions: Hysterectomy (DC), Small Bowel Resection (DC) Additional Instructions: Do not remove steristips over the incision sites, they will fall off on their own. Do not shower until your follow up with Dr. Valdivia in the office. Drain was removed and a dressing was placed over the drain site that can stay in place until your follow up with Dr. Valdivia. OTC pain medication is ok for pain management. Continue with a pureed diet consisting of mashed potatoes, apple sauce, and yogurt until directed otherwise. Follow up with your oncologist Dr. Foster. Follow up with Dr. Valdivia in 7-[address] Aaron office, your primary care provider, or come to the ED for fever, chills, or any new symptoms or concerns.
[2017-10-29 09:30] LABS: BLOOD UREA NITROGEN 4 mg/dL (7-17); CALCIUM 9.1 mg/dl (8.6-10.4); GFR AFRICAN-AMERICAN > 60; GFR NON-AFRICAN AMERICAN > 60
[2017-10-29] MEDS: Potassium Chloride 20 mEq ER Tab PO SCH ×3 (09:56→16:59)
[2017-10-29] MEDS: Benzocaine/Menthol (Cepacol) Lozenge MT PRN ×2 (09:57→16:58)
[2017-10-29 16:07] VITALS: BP 113/80; PULSE 84; TEMP 97.6
[2017-10-29] MEDS ORDERED: Pneumococcal 23-Valent Vaccine IM ONE (17:02)
== END 2017-10-29 18:29 | disposition home or self-care (01) | DRG 468 ==
LOC: C.SDS 05:40 → C.4M 11:23 → C.9I 10-24 22:10 → C.3T 10-26 19:37
PROVIDERS: ADMIT Surgery Surgical Critical Care; ATTEND Surgery Surgical Critical Care
PROC: 0UQF4ZZ Repair Cul-de-sac, Percutaneous Endoscopic Approach (ICD-10-PCS; 2017-10-22)
PROC: 0USG4ZZ Reposition Vagina, Percutaneous Endoscopic Approach (ICD-10-PCS; 2017-10-22)
PROC: 0DNW4ZZ Release Peritoneum, Percutaneous Endoscopic Approach (ICD-10-PCS; 2017-10-22)
PROC: 0DBB4ZZ Excision of Ileum, Percutaneous Endoscopic Approach (ICD-10-PCS; 2017-10-22)
PROC: 0USG4ZZ Reposition Vagina, Percutaneous Endoscopic Approach (ICD-10-PCS; 2017-10-22)
PROC: 8E0W4CZ Robotic Assisted Procedure of Trunk Region, Percutaneous Endoscopic Approach (ICD-10-PCS; 2017-10-22)
PROC: 0UT9FZZ Resection of Uterus, Via Natural or Artificial Opening With Percutaneous Endoscopic Assistance (ICD-10-PCS; principal; 2017-10-22 07:30)
PROC: 0DTB0ZZ Resection of Ileum, Open Approach (ICD-10-PCS; 2017-10-24)
PROC: 0WCJ0ZZ Extirpation of Matter from Pelvic Cavity, Open Approach (ICD-10-PCS; 2017-10-24)
PROC: 0WCG0ZZ Extirpation of Matter from Peritoneal Cavity, Open Approach (ICD-10-PCS; 2017-10-24)
PROC: 30233N1 Transfusion of Nonautologous Red Blood Cells into Peripheral Vein, Percutaneous Approach (ICD-10-PCS; 2017-10-24)
PROC: 30233M1 Transfusion of Nonautologous Plasma Cryoprecipitate into Peripheral Vein, Percutaneous Approach (ICD-10-PCS; 2017-10-24)
PROC: 30233K1 Transfusion of Nonautologous Frozen Plasma into Peripheral Vein, Percutaneous Approach (ICD-10-PCS; 2017-10-24)
DX: C49.A3 Gastrointestinal stromal tumor of small intestine (principal); K91.870 Postprocedural hematoma of a digestive system organ or structure following a digestive system procedure; D62 Acute posthemorrhagic anemia; K92.2 Gastrointestinal hemorrhage, unspecified; D68.32 Hemorrhagic disorder due to extrinsic circulating anticoagulants; T82.838A Hemorrhage due to vascular prosthetic devices, implants and grafts, initial encounter; D25.9 Leiomyoma of uterus, unspecified; K62.3 Rectal prolapse; D68.9 Coagulation defect, unspecified; N81.4 Uterovaginal prolapse, unspecified; T45.515A Adverse effect of anticoagulants, initial encounter